=== PATIENT | female | born 1970 | race African-American/Black ===

== ENCOUNTER 2024-05-15 14:31 | Outpatient (AMB) | payer OTHER, SELFPAY ==
--- NOTE | 2024-05-15 13:06 | MHC.OFFVIS ---
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 Required: No Mathematician: Mathematician offered & declined Accompanied by: Self / Same As Patient Allergies clonidine Allergy (Verified 05/15/24 14:52) fatigue and elevated BP Sulfa (Sulfonamide Antibiotics) Allergy (Verified 05/15/24 14:52) rash tramadol Allergy (Verified 05/15/24 14:52) Itching hydrochlorothiazide Adverse Reaction (Verified 05/15/24 14:52) dehydrated amoxicillin clavulanate Allergy (Uncoded 05/15/24 14:52) swelling of lips/mouth bactrim Allergy (Uncoded 05/15/24 14:52) Rash metoprolol Allergy (Uncoded 05/15/24 14:52) rash carvedilol Adverse Reaction (Uncoded 05/15/24 14:52) Elevated BP Medication List - Last Reconciled 05/15/24 by Brittany Michel LPN amlodipine 10 mg PO DAILY losartan 50 mg PO DAILY multivitamin 1 tab PO DAILY tirzepatide (weight loss) (Zepbound) 5 mg subcut QWEEK valacyclovir 500 mg PO BID HPI HPI edenilson: Details: Sade is a pleasant 53 year old female, never smoker, with underlying EDENILSON on CPAP, migraines, Bipolar disorder and TISH +. She was referred by PCP to manage CPAP therapy. She has been on CPAP therapy for >5 years, using the same CPAP machine, for reported moderate EDENILSON with a full face mask. DME is [facility]. Her machine has an end of life notification and is interested in pursing a new machine. Prior to initiating CPAP therapy she reported persistent brain fog and daytime fatigue, reporting significant improvements after use. She currently denies any respiratory symptoms. She does note increase frequency of palpitations over the last few months and has an upcoming appt with cardiology. She has a h/o HTN currently managed on amlodipine and losartan by PCP. [facility] Social History (Updated 05/15/24 @ 14:43 by Brittany Michel LPN) Patient Tobacco Use Status: Never used Tobacco Review of Systems Const Denies chills, Denies excessive sweating, Denies fever(s), Denies headache(s) and Denies night sweats Eyes Denies dry eyes, Denies irritation and Denies itchy eyes ENT Reports Normal hearing present, Denies headache(s), Denies nasal congestion, Denies nasal discharge, Denies post nasal drip and Denies sore throat Card Denies chest pain, Denies chest pain at rest, Denies chest pain with activity, Denies claudication, Denies leg edema, Denies dyspnea, Denies dyspnea on exertion, Denies orthopnea and Denies paroxysmal nocturnal dyspnea Resp Denies chest congestion, Denies cough, Denies excessive phlegm production, Denies pain on inspiration, Denies pain with cough, Denies dyspnea, Denies dyspnea on exertion, Denies stridor and Denies wheezing Musc Denies myalgias Neuro Reports Normal hearing present and Denies headache(s) Endo Denies excessive sweating Jules/Lymph Denies lymphadenopathy Aller/Immun Denies itchy eyes, Denies seasonal rhinorrhea and Denies wheezing Physical Exam Vital Signs: Last Vital Signs Pulse 98 05/15/24 14:35 BP 136/70 05/15/24 14:35 Pulse Ox 100 05/15/24 14:35 Oxygen Delivery Method Room Air 05/15/24 14:35 BMI result Body Mass Index 44.9 Const General: cooperative, healthy appearing, comfortable, no acute distress, well developed and alert Nutritional Appearance: obese Orientation/consciousness: patient oriented x3 Limitations: no limitations HEENT Head: Yes normal to inspection, Yes normocephalic and Yes atraumatic Ears: hearing grossly normal bilaterally and external ears normal Eyes General: appearance normal, both eyes and all related structures Eyelids: Yes eyelids normal Sclerae: sclerae normal EOM: EOMs intact bilaterally Neck Neck: Yes normal visual inspection and Yes no lymphadenopathy Lymphatic: no lymphadenopathy noted Chest Chest palpation & inspection: normal inspection of the chest Resp Effort & Inspection: normal respiratory effort, able to speak in complete sentences, no audible wheezes, no cough, no stridor, not tachypneic, no tripod positioning and no use of accessory muscles Auscultation: clear to auscultation bilaterally Cardio Jugular venous distension: no JVD Rate: regular rate Rhythm: regular rhythm Skin Other: warm, dry General skin exam: no rashes or lesions noted Neuro General: patient oriented x3 Cranial nerves: Yes Normal hearing present Cognition (Neuro): normal cognition Gait exam (Neuro): Normal gait present Extrem General: Yes normal to inspection, Yes capillary refill normal, Yes no clubbing, cyanosis or edema and Yes no pedal edema Psych Appearance: grossly normal and well kempt Speech and movement: Normal speech and movement present and Clear speech present Affect: normal affect Attitude: cooperative Thought process: Normal thought process present Thought content: Normal thought content present Insight: Good insight present (Psych) Judgement: Good judgement present (Psych) Assessment & Plan Assessment & Plan (1) Obstructive sleep apnea: Code(s): G47.33 - Obstructive sleep apnea (adult) (pediatric) Category: Medical (2) Daytime somnolence: Code(s): R40.0 - Somnolence Category: Medical Plan Sade presents for CPAP therapy management. She has a prior dx of EDENILSON, currently using a CPAP machine >5 years old displaying end of motor life notification. Will send for updated home sleep study and once resulted will send new prescription for CPAP therapy depending on results. All questions were answered and patient is in agreement of plan. Will follow up to review results or sooner if needed. Orders: Orders RT home sleep study Today R40.0 - Somnolence Coding Level of Care Code New Pt Level 3 (62420) Diagnoses Obstructive sleep apnea G47.33 Daytime somnolence R40.0
[2024-05-15 14:35] VITALS: BP 136/70; PULSE 98; O2SAT 100; BMI 44.9
--- OUTSIDE RECORDS SUMMARY | 2024-05-15 17:03 | XMS_ITS | Encounter Summary ---
Author Organization [facility] Address [address] [place] [address] Care Team Providers Care Renewals Specialist Name Role Phone Christen Bryanta Primary Care Provider [phone] Reason for Visit * Reason Comments Chest Pain CHEST PAIN WITH PALP ITATIONS Encounter Details Date Type Department Care Team (Late st Contact Info) Description 05/03/2024 8:07 AM EST - 05/03/2024 12:[address] [facility] [address] [place] [phone] Jac Parikh, DO [address] [place] [address] Precordial pain (Primary Dx); Palpitations Discharge Disposition: Home or Self Care Social History Tobacco Use Types Packs/Day Years Used Date Smoking Tobacco: Never Smokeless Tobacco: Never Alcohol Use Standard Drinks/Week Comments Yes 0 (1 standard drink = 0.6 oz pur e alcohol) Housing Instability Answer Date Recorde d Are you worried that in the next 2 months you may not have stable housing? No 04/16/2024 Food Access & Nutrition Answer Date Rec orded Do you have access to a vari ety of food including fruits and vegetables? Yes 04/16/2024 Health Literacy Answer Date Recorded How often do you need to hav e someone help you when you read instructions, pamphlets, or other written material from your doctor or pharmacy? Never 04/16/2024 Caregiver: How often do you need to have someone help you when you read instructions, pamphlets, or other written material from your doctor or pharmacy? Not on file 04/16/2024 Financial Risk Answer Date Recorded How hard is it for you to pa y for the very basics like food, housing, medical care, and air conditioning / heating? Somewhat hard 04/16/2024 Transportation Answer Date Recorded Has the lack of transportati on kept you from meetings, work, or from getting things needed for daily living? No Has the lack of transportati on kept you from medical appointments or from getting medications? No 04/16/2024 Social Isolation Answer Date Recorded How often do you feel lonely or isolated from th ose around you? Never 04/16/2024 Food Risk Answer Date Recorded Within the past 12 months we worried whether our food would run out before we got money to buy more. Never true 04/16/2024 Within the past 12 months th e food we bought just didn't last and we didn't have money to get more. Never true 04/16/2024 Dependent Care Answer Date Recorded Do you need help finding or paying for care for your loved ones. For example, children's program coordinator or elderly care for an older adult? No 04/16/2024 Education Answer Date Recorded Do you think completing more education or training, like finishing a GED, going to college, or learning a trade, would be helpful for you? Patient declined 04/16/2024 Employment and Income Answer Date Recor ded During the last four weeks, have you been actively looking for work? No 04/16/2024 Living Situation Answer Date Recorded What is your living situation? 0 04/16/2024 Comments No Sex and Gender Information Value Date Recorded Sex Assigned at Not on file Legal Sex Female 6:56 AM EST Gender Identity Not on file Sexual Orientation Not on file documented as of this encounter Last Filed Vital Signs Vital Sign Reading Time Taken Comments Blood Pressure 118/83 05/03/2024 11:25 AM EST Pulse 81 05/03/2024 11:25 AM EST Temperature 36.7 ??C (98.1 ??F) 05/03/2024 11:[address] Respiratory Rate 18 05/03/2024 11:25 AM EST Oxygen Saturation 99% 05/03/2024 11:25 AM EST Inhaled Oxygen Concentration - - Weight 132 kg (290 lb) 05/02/2024 11:41 PM EST Height 172.7 cm (5' 8 ) 05/02/2024 11:41 PM EST Body Mass Index 44.09 05/02/2024 11:41 PM EST documented in this encounter Discharge Instructions * Discharge Instructions* Jac Parikh DO - 05/03/2024 11:44 AM EST Stay well-hydrated, drink plenty of fluids. Take it easy for the next few days, do not overexert self. Apply warm moist compresses several times daily. Take Naprosyn and Robaxin as directed as needed.. Avoid heavy lifting and twisting. Take it easy for a few of days. Followup with your doctor in a few days. Return to the emergency department if you get worse. I hope you feel better soon. documented in this encounter Medications at Time of Discharge albuterol HFA (PROAIR HFA ; PROVENTIL HFA ; VENTOLIN HFA) 90 mcg/actuation inhaler Inhale 1 puff by mouth if needed. 02/25/2024 amLODIPine (NORVASC) 5 mg tabletIndications: Primary hypertension Take 1 tablet (5 mg total) by mouth 1 (one) time each day. 90 tablet 1 04/18/2024 cholecalciferol (VITAMIN D-3) 50 mcg (2,000 unit) capsuleIndications :Vitamin D deficiency Take 1 capsule (2,000 Units total) by mouth 1 (one) time each day. 90 capsule 1 04/18/2024 dicyclomine (BENTYL) 10 mg capsule Take 1 Capsule by mouth 4 times daily (before meals and nightly) for 180 days. 08/15/2021 losartan (COZAAR) 50 mg tabletIndications: Primary hypertension Take 1 tablet (50 mg total) by mouth 1 (one) time each day. 90 tablet 1 04/18/2024 multivitamin with minerals (CENTRUM) tablet Take 1 tablet by mouth 1 (one) time each day. naproxen (NAPROSYN) 500 mg tablet Take 1 tablet (500 mg total) by mouth 2 (two) times a day with meals for 15 days. 30 tablet 05/03/2024 5 tirzepatide, weight loss, (Zepbound) 5 mg/0.5 mL injection Inject 0.5 mL (5 mg total) under the skin every 7 (seven) days. 2 mL 04/27/2024 valACYclovir (VALTREX) 500 mg tabletIndications: Herpes Take 1 tablet (500 mg total) by mouth 2 (two) times a day. 180 tablet 1 04/18/2024 methocarbamoL (ROBAXIN) 750 mg tablet Take 1 tablet (750 mg total) by mouth 4 (four) times a day for 10 days. 40 each 05/03/2024 5 WHEAT DEXTRIN ORAL Take 4 g by mouth daily. 12/09/2023 5 documented as of this encounter Ordered Prescriptions Prescription Sig Dispense Quantity Refills Last Filled Start Date End Date naproxen (NAPROSYN) 500 mg tablet Take 1 tablet (500 mg total) by mouth 2 (two) times a day with meals for 15 days. 30 tablet 05/03/2024 05/18/2024 methocarbamoL (ROBAXIN) 750 mg tablet Take 1 tablet (750 mg total) by mouth 4 (four) times a day for 10 days. 40 each 05/03/2024 05/05/2024 documented in this encounter Discharge Disposition Disposition Code Departure Means Destination Comment s Home or Self Care documented in this encounter Progress Notes * Kathryn Lynne RN - 05/02/2024 11:39 PM EST Pt to ER with complaints of palpitations x 1 week. Today onset of left sided chest pain that is radiating up to neck. C/O nausea and lightheadedness. * Jac Parikh DO - 05/02/2024 11:24 PM EST Emergency Medicine Note Patient Name: Sade Farmer Initial Evaluation: 05/02/2024 : 1970 Patient's PCP: Alice Bryant DO Emergency Physician: Jac Parikh DO History of Present Illness Chief Complaint: Chief Complaint Patient presents with Chest Pain CHEST PAIN WITH PALPITATIONS HPI: This 53-year-old female with history of multiple medical problems, presents emergency department complaining of palpitations, left-sided and sternal area chest pain, headache, neck pain. The chest pain has been going on persistently for the past 2 days but no shortness of breath. Her other symptoms have been going on for several days. No back pain. No focal numbness or weakness. No visual complaints or difficulty speaking. No abdominal pain, vomiting or diarrhea. Patient has had some nausea and lightheadedness with her other symptoms. She denies any known history of CAD or thromboembolicdisease. No history of TIA/CVA. She is not on any blood thinners. Patient reports she does have a history of migraine headaches. Fevers, chills or sweats. No trauma or injury. No other acute complaints. ROS: I have performed a ROS with the pertinent positives and negatives documented in the history ofpresent illness. 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 History of colonic polyps 07/16/2017 DX:History of colonic polyps; COMMENT: Colonoscopy 02/04/15. Sessile. Distal sigmoid - 8 mm, transverse colon - 5 mm and rectum - 5 mm. Hx of sinus tachycardia 04/01/2020 DX:Hx of sinus tachycardia Hydronephrosis of left kidney 07/16/2017 DX:Hydronephrosis of left kidney; COMMENT: US 06/20/12 - mild Hypertension 08/17/2016 DX:Hypertension IBS (irritable bowel syndrome) 07/16/2017 DX:IBS (irritable bowel syndrome) Knee pain 08/17/2016 DX:Knee pain Microhematuria DX:Microhematuria Migraine 07/16/2017 DX:Migraine Morbid obesity with BMI of 40.0-44.9, adult (CMS/HCC) 08/17/2016 DX:Morbid obesity with BMI of 40.0-44.9, adult (HCC) Multiple fibroadenomata of both breasts 07/16/2017 DX:Multiple fibroadenomata of both breasts; COMMENT: 12/28/08 breast lump. Bilateral Mammo & US01/08/09 Nonulcer dyspepsia 08/12/2017 DX:Nonulcer dyspepsia EDENILSON on CPAP 08/17/2016 DX:EDENILSON on CPAP Palpitations 04/01/2020 DX:Palpitations Vitamin D deficiency 08/20/2016 DX:Vitamin D deficiency Past Surgical History: Procedure Laterality Date APPENDECTOMY 11/15/2016 PROCEDURE: HISTORICAL APPENDECTOMY COLONOSCOPY 02/04/2015 PROCEDURE: HISTORICAL COLONOSCOPY; COMMENT: with EGD COLONOSCOPY 02/12/2020 PROCEDURE: HISTORICAL COLONOSCOPY; COMMENT: Dr. Massey, int hemorrhoids HERNIA REPAIR 11/15/2016 PROCEDURE: HISTORICAL HERNIA REPAIR/UMB HYSTERECTOMY 2012 PROCEDURE: HISTORICAL HYSTERECTOMY; COMMENT: with L oophorectomy KNEE ARTHROPLASTY Left 10/2020 PROCEDURE: OH ARTHRS KNEE ABRASION ARTHRP/ASSISTANT CASE MANAGER DRLG/MICROFX; COMMENT: By Dr. Keyshawn Taylor - Total Knee Arthroplasty KNEE SURGERY Bilateral 11/2015 and 04/2016 PROCEDURE: HISTORICAL KNEE SURGERY; COMMENT: meniscal repair and osteophyte removal; NEOS SALPINGOOPHORECTOMY Left 11/15/2016 PROCEDURE: OH LAPAROSCOPY W/RMVL ADNEXAL STRUCTURES; COMMENT: ruptured ovarian cyst Social History Tobacco Use Smoking status: Never Smokeless tobacco: Never Substance Use Topics Alcohol use: Yes Drug use: No Types: Marijuana/Cannabis Family History Problem Relation Name Age of Onset Asthma Mother end stage COPD,HTN- age 57 Hypertension Mother Hypertension Maternal Grandmother Arthritis is allergic to amoxicillin-pot clavulanate, carvedilol, clonidine, hydrochlorothiazide, metoprolol,sulfa (sulfonamide antibiotics), sulfamethoxazole-trimethoprim, and tramadol. No current facility-administered medications on file prior to encounter. Current Outpatient Medications on File Prior to Encounter Medication Sig Dispense Refill amLODIPine (NORVASC) 5 mg tablet Take 1 tablet (5 mg total) by mouth 1 (one) time each day. 90 tablet 1 cholecalciferol (VITAMIN D-3) 50 mcg (2,000 unit) capsule Take 1 capsule (2,000 Units total) by mouth 1 (one) time each day. 90 capsule 1 dicyclomine (BENTYL) 10 mg capsule Take 1 Capsule by mouth 4 times daily (before meals and nightly)for 180 days. losartan (COZAAR) 50 mg tablet Take 1 tablet (50 mg total) by mouth 1 (one) time each day. 90 tablet 1 multivitamin with minerals (CENTRUM) tablet Take 1 tablet by mouth 1 (one) time each day. tirzepatide, weight loss, (Zepbound) 5 mg/0.5 mL injection Inject 0.5 mL (5 mg total) under the skin every 7 (seven) days. 2 mL 0 valACYclovir (VALTREX) 500 mg tablet Take 1 tablet (500 mg total) by mouth 2 (two) times a day. 180tablet 1 WHEAT DEXTRIN ORAL Take 4 g by mouth daily. [DISCONTINUED] Zepbound 2.5 mg/0.5 mL injection ADMINISTER 2.5 MG UNDER THE SKIN EVERY 7 DAYS 2 mL 0 Physical Exam ED Triage Vitals Temp Heart Rate Resp BP 05/02/24 2341 05/02/24 2341 05/02/24 2341 05/02/24 2341 36.8 ??C (98.2 ??F) 95 18 (!) 180/105 SpO2 Temp Source Heart Rate Source Patient Position 05/02/24 2341 05/02/24 2341 -- -- 100 % Oral BP Location FiO2 (%) 05/03/24 0553 -- Left arm General: Alert and oriented x 3, nontoxic, in no acute distress. Well-appearing, well nourished, inno acute distress. Conversing and following commands appropriately with clear sensorium. HEENT: PERRL, EOMI, pink and moist mucosa neck: Soft and supple, positive reproducible left trapezius area spasm and tenderness. No meningismus. Chest: Good air entry bilaterally clear to auscultation; no evidence of respiratory distress Circulatory: RRR, extremities well perfused Abdomen: Soft, non-distended, Non-Tender Extremities: Warm and well-perfused Skin: Warm and dry Neuro: Alert and oriented x 3, no obvious gross acute focal deficits Results Labs Reviewed CBC WITH AUTO DIFFERENTIAL - Abnormal Result Value WBC 9.7 RBC 5.50 (*) Hemoglobin 13.2 Hematocrit 43.0 MCV 78.2 (*) MCH 24.0 (*) MCHC 30.7 (*) RDW 15.1 (*) Platelets 394 MPV 9.2 NRBC 0.0 NRBC Absolute 0.00 Neutrophils Relative 56.5 Lymphocytes Relative 35.2 Monocytes Relative 6.3 Eosinophils Relative 1.3 Basophils Relative 0.4 Immature Granulocytes Relative 0.3 Neutrophils Absolute 5.45 Lymphocytes Absolute 3.40 Monocytes Absolute 0.61 Eosinophils Absolute 0.13 Basophils Absolute 0.04 Immature Granulocytes Absolute 0.03 THYROID STIMULATING HORMONE WITH REFLEX TO FREE T4 AND FREE T3 - Abnormal TSH 4.32 (*) TROPONIN I HIGH SENSITIVITY - Normal High Sensitivity Troponin I 3 Narrative: High levels of biotin in samples may falsely decrease hsTroponin values. Use caution when interpreting hsTroponin results in patients taking biotin who exhibit renal impairment (eGFR <60) or in patients taking more than 20 mg/day of biotin. TROPONIN I HIGH SENSITIVITY - Normal High Sensitivity Troponin I 3 Narrative: High levels of biotin in samples may falsely decrease hsTroponin values. Use caution when interpreting hsTroponin results in patients taking biotin who exhibit renal impairment (eGFR <60) or in patients taking more than 20 mg/day of biotin. COMPREHENSIVE METABOLIC PANEL - Normal Sodium 140 Potassium 4.3 Chloride 105 CO2 29 Anion Gap 6 Glucose 87 BUN 12 Creatinine 0.87 eGFR 81 BUN/Creatinine Ratio 13.8 Calcium 10.3 AST (SGOT) 20 ALT (SGPT) 20 Alkaline Phosphatase 81 Total Protein 7.8 Albumin 3.9 Total Bilirubin 0.3 LIPASE - Normal Lipase 27 MAGNESIUM - Normal Magnesium 2.0 B-TYPE NATRIURETIC PEPTIDE - Normal BNP 10 FREE THYROXINE WITH REFLEX TO FREE TRIIODOTHYRONINE - Normal Free T4 1.32 TRIIODOTHYRONINE FREE - Normal T3, Free 406 CBC AND DIFFERENTIAL Narrative: The following orders were created for panel order CBC and differential. Procedure Abnormality Status --------- ------ CBC auto differential[[id number]] Abnormal Final result Please view results for these tests on the individual orders. Abnormal Labs Reviewed CBC WITH AUTO DIFFERENTIAL - Abnormal; Notable for the following components: Result Value RBC 5.50 (*) MCV 78.2 (*) MCH 24.0 (*) MCHC 30.7 (*) RDW 15.1 (*) All other components within normal limits THYROID STIMULATING HORMONE WITH REFLEX TO FREE T4 AND FREE T3 - Abnormal; Notable for the following components: TSH 4.32 (*) All other components within normal limits CT Angio Chest wo and/or w Contrast Final Result No pulmonary arterial emboli. Small hiatal hernia with patulous esophagus. Correlate for reflux gastroesophageal reflux. -------- FINAL REPORT -------- Dictated By: DUSTY HI Dictated Date: 05/03/2024 09:33 ET Assigned Physician: DUSTY HI Reviewed and Electronically Signed By: DUSTY HI Signed Date: 05/03/2024 09:37 ET Workstation ID: [id number] Transcribed By: Self Edit Transcribed Date: 05/03/2024 09:[address] Angio Head/Neck wo and/or w Contrast Final Result Normal exam -------- FINAL REPORT -------- Dictated By: DUSTY HI Dictated Date: 05/03/2024 09:38 ET Assigned Physician: DUSTY HI Reviewed and Electronically Signed By: DUSTY HI Signed Date: 05/03/2024 09:43 ET Workstation ID: [id number] Transcribed By: Self Edit Transcribed Date: 05/03/2024 09:38 ET XR Chest 2 Views Final Result No acute findings. -------- FINAL REPORT -------- Dictated By: Nixon Naidu Dictated Date: 05/03/2024 08:24 ET Assigned Physician: Nixon Naidu Reviewed and Electronically Signed By: Nixon Naidu Signed Date: 05/03/2024 08:25 ET Workstation ID: [id number] Transcribed By: Self Edit Transcribed Date: 05/03/2024 08:24 ET I have discussed the incidental/abnormal imaging and/or lab abnormalities with the patient and haveinstructed them the need for further evaluation and workup with their primary care doctor. The laboratory results, imaging results and other diagnostic exam results were reviewed in the EMR. EKG Interpretation Sinus rhythm at 96 bpm compared to EKG done 03/05/2024 Critical Care Time None ? Medical Decision Making Medications sodium chloride 0.9 % bolus 1,000 mL (0 mL intravenous Stopped 05/03/24 0848) metoclopramide (REGLAN) injection 10 mg (10 mg intravenous Given 05/03/24 0842) diphenhydrAMINE (BENADRYL) injection 25 mg (25 mg intravenous Given 05/03/24 0841) sodium chloride 0.9 % flush 10 mL (10 mL intravenous Given 05/03/24 0901) iopamidoL (ISOVUE-370) 370 mg iodine /mL (76 %) injection 90 mL (160 mL intravenous Given 05/03/24 0900) ED Course as of 05/03/241144May 03, 2024 114 Reevaluation note: Patient is nontoxic, and in no acute distress and reports feeling better after treatment in the ED. Diagnostic studies reviewed. Given the patient's overall clinical presentation and her diagnostic results, there is low suspicion for any life-threatening or potentially seriously debilitating pathology causing the patient's symptoms. The patient states she feels well enoughto go home, and wants to go home. Of note, she appears very reliable, will follow-up with her doctor and return to the ED if she gets worse in any way at all. [KN] ED Course User Index [KN] Jac Parikh DO Clinical Impressions as of 05/03/241144 Precordial pain Palpitations Differential diagnosis: ACS UT Pneumothorax Pneumonia Pulmonary embolus Aortic dissection ICH Carotid dissection Migraine headache Tension headache Stable and in no distress. She does have a history of hypertension. Given her overall symptoms, CTAs of the head and neck as well as the chest with IV contrast were ordered. Procedures Procedures Diagnosis 1. Precordial pain CT Angio Chest wo and/or w Contrast CT Angio Chest wo and/or w Contrast 2. Palpitations Disposition Discharge ED Prescriptions Medication Sig Dispense Start Date End Date Auth. Provider naproxen (NAPROSYN) 500 mg tablet Take 1 tablet (500 mg total) by mouth 2 (two) times a day with meals for 15 days. 30 tablet 05/03/2024 05/18/2024 Jac Parikh DO methocarbamoL (ROBAXIN) 750 mg tablet Take 1 tablet (750 mg total) by mouth 4 (four) times a day for 10 days. 40 each 05/03/2024 05/13/2024 Jac Parikh DO Physician Attestation Jac Parikh DO 05/03/24 08 Jac Parikh DO 05/03/24 09 Jac Parikh DO 05/03/24 1145 Jac Parikh, 05/03/24 1617 documented in this encounter Plan of Treatment Upcoming Encounters Date Type Department Care Team (Late st Contact Info) Description 05/18/2024 8:45 AM EDT Office Visit Bariatric Surgery - [place] [address] [facility] [address] [place] [phone] Raiza Stewart MD [address] [facility] [address] [place] [address] 05/26/2024 10:00 AM EDT Ancillary Procedure [facility] [address] [facility] [address] [place] [phone] 05/29/2024 1:00 PM EDT Office Visit [facility] Hematology Oncology [address] [place] [phone] Cindy Levin DO [address] [place] [address] 06/15/2024 9:00 AM EDT Office Visit Internal Medicine - [facility] [address] [place] [phone] Brunilda Frederick, ALL[place] [address] [place] [address] 07/13/2024 8:15 AM EDT Telemedicine [facility] for [place] - [place] [address] [facility] [address] [place] [phone] Joan Moreland MD [address] [place] [id number] documented as of this encounter Procedures Procedure Name Priority Date/Time Associated Diagnosis Comments ECG ANNOTATED 05/04/2024 CT ANGIO HEAD/NECK WO AND/OR W CONTRAST STAT 05/03/2024 9:[address] ANGIO CHEST WO AND/OR W CONTRAST STAT 05/03/2024 9:20 AM EST Precordial pain XR CHEST 2 VIEWS STAT 05/03/2024 5:08 AM EST TROPONIN I HIGH SENSITIVITY STAT 05/03/2024 3:59 AM EST TROPONIN I HIGH SENSITIVITY STAT 05/03/2024 12:10 AM EST THYROID STIMULATING HORMONE WITH REFLEX TO FREE T4 AND FREE T3 STAT Add-on 05/03/2024 12:10 AM EST FREE THYROXINE WITH REFLEX TO FREE TRIIODOTHYRONINE STAT 05/03/2024 12:10 AM EST CBC WITH AUTO DIFFERENTIAL STAT 05/03/2024 12:10 AM EST CBC AND DIFFERENTIAL STAT 05/03/2024 12:10 AM EST TRIIODOTHYRONINE FREE STAT 05/03/2024 12:10 AM EST B-TYPE NATRIURETIC PEPTIDE STAT 05/03/2024 12:10 AM EST MAGNESIUM STAT 05/03/2024 12:10 AM EST LIPASE STAT 05/03/2024 12:10 AM EST COMPREHENSIVE METABOLIC PANEL STAT 05/03/2024 12:10 AM EST ECG 12-LEAD STAT 05/02/2024 11:32 PM EST documented in this encounter Results * ECG-Annotated (05/04/2024) us Provider Onbase MD ECG ORDERABLES Final Result * CT Angio Head/Neck wo and/or w Contrast (05/03/2024 9:20 AM EST) Anatomical Region Laterality Modality Head and Neck Computed Tomogra phy 05/03/2024 9:38 AM EST Impressions 05/03/2024 9:43 AM EST Normal exam -------- FINAL REPORT -------- Dictated By: DUSTY HI Dictated Date: 05/03/2024 09:38 ET Assigned Physician: DUSTY HI Reviewed and Electronically Signed By: DUSTY HI Signed Date: 05/03/2024 09:43 ET Workstation ID: [id number] Transcribed By: Self Edit Transcribed Date: 05/03/2024 09:38 ET Narrative 05/03/2024 9:43 AM EST PROCEDURE: Head CT and head/neck CTA INDICATION: Headache, pain TECHNIQUE: Head CT without contrast. ??CTA of the head and neck with intravenous contrast. Multiplanar reformats. The examination was performed utilizing dose reduction techniques.3-D or MIP images were produced with postprocessing on an independent computer workstation. ??160 mL ISOVUE-370 injected intravenously without complication COMPARISON: ??10/11/[address] FINDINGS: ?? CT head: No acute intracranial hemorrhage, territorial infarction, or mass effect. Valdez-white differentiation is preserved. ??Brain parenchyma is normal. Ventricles, sulci, and cisterns are normal in size and configuration. ??No hydrocephalus or volume loss. Prominent dural calcifications are seen throughout the intracranial compartment. Sinuses and mastoid air cells are clear. No scalp hematoma or skull fracture. CTA Neck: There is a left-sided aortic arch. Major branching arteries arising from the aortic arch are patent. Common carotid and internal carotid arteries are patent in the neck. Cervical vertebral arteries are patent. ??Left vertebral artery is dominant. ??Right vertebral artery is hypoplastic. No dissection Please see separately dictated chest CT for evaluation of intrathoracic structures. Soft tissues of the neck are normal. ??Mild degenerative changes throughout the cervical spine. CTA Head: Intracranial portions of the internal carotid arteries are patent. M1 and A1 segments are patent. ??Distal middle cerebral and anterior cerebral arteries are patent. Small vertebrobasilar system is patent. Superior cerebellar and posterior cerebral arteries are patent noting type origin of the posterior cerebral arteries bilaterally, a normal variant. Major dural venous sinuses opacify normally with contrast. No intracranial aneurysm or vascular malformation. Procedure Note Dusty Hi MD - 05/03/2024 PROCEDURE: Head CT and head/neck CTA INDICATION: Headache, pain TECHNIQUE: Head CT without contrast. CTA of the head and neck withintravenous contrast. Multiplanar reformats. The examination was performedutilizing dose reduction techniques.3-D or MIP images were produced withpostprocessing on an independent computer workstation. 160 mL ISOVUE-370injected intravenously without complication COMPARISON: 10/11/[address] FINDINGS: CT head: No acute intracranial hemorrhage, territorial infarction, or masseffect. Valdez-white differentiation is preserved. Brain parenchyma is normal. Ventricles, sulci, and cisterns are normal in size and configuration. Nohydrocephalus or volume loss. Prominent dural calcifications are seen throughout the intracranialcompartment. Sinuses and mastoid air cells are clear. No scalp hematoma or skull fracture. CTA Neck: There is a left-sided aortic arch. Major branching arteries arising from the aortic arch are patent. Commoncarotid and internal carotid arteries are patent in the neck. Cervicalvertebral arteries are patent. Left vertebral artery is dominant. Rightvertebral artery is hypoplastic. No dissection Please see separately dictated chest CT for evaluation of intrathoracicstructures. Soft tissues of the neck are normal. Mild degenerativechanges throughout the cervical spine. CTA Head: Intracranial portions of the internal carotid arteries are patent. M1 andA1 segments are patent. Distal middle cerebral and anterior cerebralarteries are patent. Small vertebrobasilar system is patent. Superior cerebellar and posteriorcerebral arteries are patent noting type origin of the posteriorcerebral arteries bilaterally, a normal variant. Major dural venous sinuses opacify normally with contrast. No intracranial aneurysm or vascular malformation. IMPRESSION: Normal exam -------- FINAL REPORT -------- Dictated By: DUSTY HI Dictated Date: 05/03/2024 09:38 ET Assigned Physician: DUSTY HI Reviewed and Electronically Signed By: DUSTY HI Signed Date: 05/03/2024 09:43 ET Workstation ID: [id number] Transcribed By: Self Edit Transcribed Date: 05/03/2024 09:38 ET Jac Parikh DO IMG CT PROCEDURES Final Result * CT Angio Chest wo and/or w Contrast (05/03/2024 9:20 AM EST) Anatomical Region Laterality Modality Body Computed Tomogra phy 05/03/2024 9:33 AM EST Impressions 05/03/2024 9:37 AM EST No pulmonary arterial emboli. Small hiatal hernia with patulous esophagus. ??Correlate for reflux gastroesophageal reflux. -------- FINAL REPORT -------- Dictated By: DUSTY HI Dictated Date: 05/03/2024 09:33 ET Assigned Physician: DUSTY HI Reviewed and Electronically Signed By: DUSTY HI Signed Date: 05/03/2024 09:37 ET Workstation ID: [id number] Transcribed By: Self Edit Transcribed Date: 05/03/2024 09:33 ET Narrative 05/03/2024 9:37 AM EST PROCEDURE: Chest CTA INDICATION: Chest pain TECHNIQUE: Chest CTA with intravenous administration of 160cc ISOVUE-370. Multi planar reformats were created and interpreted. The examination was performed utilizing dose reduction techniques.3-D or MIP images were produced with postprocessing on an independent computer workstation. ??Total DLP 756 COMPARISON: ??01/07/[address] FINDINGS: LUNGS/PLEURA: Central airways are patent. Lungs are clear. No pleural effusion or pneumothorax. MEDIASTINUM: Motion artifact obscures the subsegmental left lower lobe pulmonary arteries. ??No pulmonary arterial emboli. ??Thoracic aorta is normal in size. ??Cardiac chambers are normal in size. ??No pericardial effusion. ??No coronary artery calcifications. ??Small hiatal hernia with patulous esophagus. ??Thyroid gland is unremarkable. CHEST WALL: No axillary lymphadenopathy or superficial hematoma. UPPER ABDOMEN:The visualized portions of the upper abdomen are unremarkable. BONES: No acute fracture. Scattered degenerative changes seen throughout the bones. Procedure Note Dutsy Hi MD - 05/03/2024 PROCEDURE: Chest CTA INDICATION: Chest pain TECHNIQUE: Chest CTA with intravenous administration of 160cc ISOVUE-370.Multi planar reformats were created and interpreted. The examination wasperformed utilizing dose reduction techniques.3-D or MIP images wereproduced with postprocessing on an independent computer workstation.Total DLP 756 COMPARISON: 01/07/[address] FINDINGS: LUNGS/PLEURA: Central airways are patent. Lungs are clear. No pleuraleffusion or pneumothorax. MEDIASTINUM: Motion artifact obscures the subsegmental left lower lobepulmonary arteries. No pulmonary arterial emboli. Thoracic aorta isnormal in size. Cardiac chambers are normal in size. No pericardialeffusion. No coronary artery calcifications. Small hiatal hernia withpatulous esophagus. Thyroid gland is unremarkable. CHEST WALL: No axillary lymphadenopathy or superficial hematoma. UPPER ABDOMEN:The visualized portions of the upper abdomen areunremarkable. BONES: No acute fracture. Scattered degenerative changes seen throughoutthe bones. IMPRESSION: No pulmonary arterial emboli. Small hiatal hernia with patulous esophagus. Correlate for refluxgastroesophageal reflux. -------- FINAL REPORT -------- Dictated By: DUSTY HI Dictated Date: 05/03/2024 09:33 ET Assigned Physician: DUSTY HI Reviewed and Electronically Signed By: DUSTY HI Signed Date: 05/03/2024 09:37 ET Workstation ID: [id number] Transcribed By: Self Edit Transcribed Date: 05/03/2024 09:33 ET Jac Parikh DO IMG CT PROCEDURES Final Result * XR Chest 2 Views (05/03/2024 5:08 AM EST) Anatomical Region Laterality Modality Body Radiographic Kassy ging 05/03/2024 8:24 AM EST Impressions 05/03/2024 8:25 AM EST No acute findings. -------- FINAL REPORT -------- Dictated By: Nixon Naidu Dictated Date: 05/03/2024 08:24 ET Assigned Physician: Nixon Naidu Reviewed and Electronically Signed By: Nixon Naidu Signed Date: 05/03/2024 08:25 ET Workstation ID: [id number] Transcribed By: Self Edit Transcribed Date: 05/03/2024 08:24 ET Narrative 05/03/2024 8:25 AM EST PROCEDURE: PA and lateral radiographs of the chest. HISTORY: chest pain. COMPARISON: 03/05/2024. FINDINGS: Lungs, pleural spaces, pulmonary vasculature, and cardiomediastinal contours are normal. ??Mild degenerative changes of the spine. Procedure Note Nixon Naidu MD - 05/03/2024 PROCEDURE: PA and lateral radiographs of the chest. HISTORY: chest pain. COMPARISON: 03/05/2024. FINDINGS: Lungs, pleural spaces, pulmonary vasculature, and cardiomediastinalcontours are normal. Mild degenerative changes of the spine. IMPRESSION: No acute findings. -------- FINAL REPORT -------- Dictated By: Nixon Naidu Dictated Date: 05/03/2024 08:24 ET Assigned Physician: Nixon Naidu Reviewed and Electronically Signed By: Nixon Naidu Signed Date: 05/03/2024 08:25 ET Workstation ID: [id number] Transcribed By: Self Edit Transcribed Date: 05/03/2024 08:24 ET Jac Parikh DO IMG XR PROCEDURES Final Result * Troponin I high sensitivity (05/03/2024 3:59 AM EST) High Sensitivity Troponin I 3 <=54 ng/L LAB CHEMISTRY METHOD 05/03/2024 4:40 AM EST [facility] Blood Venous blood specimen / Unknown Venipuncture / Unknown 05/03/2024 3:59 AM EST 05/03/2024 4:07 AM EST Narrative [facility] - 05/03/2024 4:40 AM EST High levels of biotin in samples may falsely decrease hsTroponin values. ??Use caution when interpreting hsTroponin results in patients taking biotin who exhibit renal impairment (eGFR <60) or in patients taking more than 20 mg/day of biotin. us Jac Parikh DO LAB BLOOD ORDERABLES Final Res ult Performing Organization Address City/[facility]/ZIP Co de Phone Number [facility] [address] [place] [address], [place] [phone] * Triiodothyronine free (05/03/2024 12:10 AM EST) T3, Free 406 230 - 420 pcg/dL LAB CHEMISTRY METHOD 05/03/2024 10:06 AM EST [facility] Blood Venous blood specimen / Unknown Venipuncture / Unknown 05/03/2024 12:10 AM EST 05/03/2024 12:48 AM EST us Jac Parikh DO LAB BLOOD ORDERABLES Final Res ult Performing Organization Address [facility]/[place] Co de Phone Number [facility] [address] [place] [address], [place] [phone] * Free thyroxine with reflex to free triiodothyronine (05/03/2024 12:10 AM EST) Free T4 1.32 0.70 - 1.80 ng/dL LAB CHEMISTRY METHOD 05/03/2024 9:39 AM EST [facility] Blood Venous blood specimen / Unknown Venipuncture / Unknown 05/03/2024 12:10 AM EST 05/03/2024 12:48 AM EST us Jac Parikh DO LAB BLOOD ORDERABLES Final Res ult Performing Organization Address [facility]/ZIP Co de Phone Number [facility] [address] [place] [address], [place] [phone] * (ABNORMAL) Thyroid stimulating hormone with reflex to free t4 and free t3 (TSH Reflex) (05/03/2024 12:10 AM EST) TSH 4.32(H) 0.40 - 4.00 mcIU/mL LAB CHEMISTRY METHOD 05/03/2024 9:14 AM EST [facility] Blood Venous blood specimen / Unknown Venipuncture / Unknown 05/03/2024 12:10 AM EST 05/03/2024 12:48 AM EST us Jac Parikh DO LAB BLOOD ORDERABLES Final Res ult [facility] [address] [place] [address], * (ABNORMAL) CBC auto differential (05/03/2024 12:10 AM EST) WBC 9.7 4.8 - 10.8 K/mcL LAB HEMETOLOGY METHOD 05/03/2024 12:53 AM [facility] RBC 5.50(H) 3.80 - 4.80 M/mcL LAB HEMETOLOGY METHOD 05/03/2024 12:53 AM [facility] Hemoglobin 13.2 11.5 - 16.0 g/dL LAB HEMETOLOGY METHOD 05/03/2024 12:53 AM [facility] Hematocrit 43.0 35.0 - 47.0 % LAB HEMETOLOGY METHOD 05/03/2024 12:53 AM [facility] MCV 78.2(L) 79.0 - 98.0 FL LAB HEMETOLOGY METHOD 05/03/2024 12:53 AM [facility] MCH 24.0(L) 27.0 - 32.0 pcg LAB HEMETOLOGY METHOD 05/03/2024 12:53 AM [facility] MCHC 30.7(L) 32.0 - 37.0 g/dL LAB HEMETOLOGY METHOD 05/03/2024 12:53 AM [facility] RDW 15.1(H) 11.0 - 15.0 % LAB HEMETOLOGY METHOD 05/03/2024 12:53 AM [facility] Platelets 394 130 - 400 K/mcL LAB HEMETOLOGY METHOD 05/03/2024 12:53 AM [facility] MPV 9.2 7.0 - 11.0 FL LAB HEMETOLOGY METHOD 05/03/2024 12:53 AM [facility] NRBC 0.0 <1.0 % LAB HEMETOLOGY METHOD 05/03/2024 12:53 AM [facility] NRBC Absolute 0.00 <0.10 K/mcL LAB HEMETOLOGY METHOD 05/03/2024 12:53 AM [facility] Neutrophils Relative 56.5 % LAB HEMETOLOGY METHOD 05/03/2024 12:53 AM [facility] Lymphocytes Relative 35.2 % LAB HEMETOLOGY METHOD 05/03/2024 12:53 AM [facility] Monocytes Relative 6.3 % LAB HEMETOLOGY METHOD 05/03/2024 12:53 AM [facility] Eosinophils Relative 1.3 % LAB HEMETOLOGY METHOD 05/03/2024 12:53 AM [facility] Basophils Relative 0.4 % LAB HEMETOLOGY METHOD 05/03/2024 12:53 AM [facility] Immature Granulocytes Relative 0.3 % LAB HEMETOLOGY METHOD 05/03/2024 12:53 AM [facility] Neutrophils Absolute 5.45 1.50 - 7.00 K/mcL LAB HEMETOLOGY METHOD 05/03/2024 12:53 AM [facility] Lymphocytes Absolute 3.40 1.00 - 5.00 K/mcL LAB HEMETOLOGY METHOD 05/03/2024 12:53 AM [facility] Monocytes Absolute 0.61 0.20 - 1.00 K/mcL LAB HEMETOLOGY METHOD 05/03/2024 12:53 AM [facility] Eosinophils Absolute 0.13 0.00 - 0.50 K/mcL LAB HEMETOLOGY METHOD 05/03/2024 12:53 AM EST [facility] Basophils Absolute 0.04 0.00 - 0.20 K/[facility] LAB HEMETOLOGY METHOD 05/03/2024 12:53 AM EST [facility] Immature Granulocytes Absolute 0.03 0.00 - 0.03 K/[facility] LAB HEMETOLOGY METHOD 05/03/2024 12:53 AM EST [facility] Blood Venous blood specimen / Unknown Venipuncture / Unknown 05/03/2024 12:10 AM EST 05/03/2024 12:48 AM EST us Jac Parikh DO LAB BLOOD ORDERABLES Final Res ult Performing Organization Address [facility]/ZIP Co de Phone Number [facility] [address] [place] [address], * B-type natriuretic peptide (05/03/2024 12:10 AM EST) BNP 10 <=100 pcg/mL LAB CHEMISTRY METHOD 05/03/2024 1:32 AM EST [facility] Blood Venous blood specimen / Unknown Venipuncture / Unknown 05/03/2024 12:10 AM EST 05/03/2024 12:48 AM EST us Jac Parikh DO LAB BLOOD ORDERABLES Final Res ult [facility] [address] [place] [address], [place] [phone] * Magnesium (05/03/2024 12:10 AM EST) Magnesium 2.0 1.9 - 2.6 mg/dL LAB CHEMISTRY METHOD 05/03/2024 1:25 AM EST [facility] Blood Venous blood specimen / Unknown Venipuncture / Unknown 05/03/2024 12:10 AM EST 05/03/2024 12:48 AM EST us Jac Parikh DO LAB BLOOD ORDERABLES Final Res ult Performing Organization Address [facility]/ZIP Co de Phone Number [facility] [address] [place] [address], [place] [phone] * Lipase (05/03/2024 12:10 AM EST) Pathologist [facility] Lipase 27 13 - 75 unit/L LAB CHEMISTRY METHOD 05/03/2024 1:25 AM [facility] Blood Venous blood specimen / Unknown Venipuncture / Unknown 05/03/2024 12:10 AM EST 05/03/2024 12:48 AM EST us Jac Parikh DO LAB BLOOD ORDERABLES Final Res ult Performing Organization Address [facility]/ZIP Co de Phone Number [facility] [address] [place] [address], [place] [phone] * Comprehensive metabolic panel (05/03/2024 12:10 AM EST) Pathologist [facility] Sodium 140 133 - 145 mmol/L LAB CHEMISTRY METHOD 05/03/2024 1:25 AM [facility] Potassium 4.3 3.5 - 5.5 mmol/L LAB CHEMISTRY METHOD 05/03/2024 1:25 AM [facility] Chloride 105 96 - 110 mmol/L LAB CHEMISTRY METHOD 05/03/2024 1:25 AM [facility] CO2 29 21 - 32 mmol/L LAB CHEMISTRY METHOD 05/03/2024 1:25 AM [facility] Anion Gap 6 3 - 11 LAB CHEMISTRY METHOD 05/03/2024 1:25 AM [facility] Glucose 87 70 - 100 mg/dL LAB CHEMISTRY METHOD 05/03/2024 1:25 AM [facility] BUN 12 5 - 25 mg/dL LAB CHEMISTRY METHOD 05/03/2024 1:25 AM [facility] Creatinine 0.87 0.50 - 1.10 mg/dL LAB CHEMISTRY METHOD 05/03/2024 1:25 AM [facility] eGFR 81 >=60 mL/min/1. 73m2 LAB CHEMISTRY METHOD 05/03/2024 1:25 AM [facility] Comment:Calculation based on the??Chronic Kidney Disease Epidemiology Collaboration (CKD-EPI) equation refit??without adjustment for race. BUN/Creatinine Ratio 13.8 LAB CHEMISTRY METHOD 05/03/2024 1:25 AM [facility] Calcium 10.3 8.5 - 10.5 mg/dL LAB CHEMISTRY METHOD 05/03/2024 1:25 AM [facility] AST (SGOT) 20 10 - 42 unit/L LAB CHEMISTRY METHOD 05/03/2024 1:25 AM [facility] ALT (SGPT) 20 10 - 60 unit/L LAB CHEMISTRY METHOD 05/03/2024 1:25 AM [facility] Alkaline Phosphatase 81 42 - 121 unit/L LAB CHEMISTRY METHOD 05/03/2024 1:25 AM [facility] Total Protein 7.8 6.0 - 8.0 g/dL LAB CHEMISTRY METHOD 05/03/2024 1:25 AM [facility] Albumin 3.9 3.2 - 5.0 g/dL LAB CHEMISTRY METHOD 05/03/2024 1:25 AM [facility] Total Bilirubin 0.3 0.0 - 1.4 mg/dL LAB CHEMISTRY METHOD 05/03/2024 1:25 AM [facility] Blood Venous blood specimen / Unknown Venipuncture / Unknown 05/03/2024 12:10 AM EST 05/03/2024 12:48 AM EST us Jac Parikh DO LAB BLOOD ORDERABLES Final Res ult Performing Organization Address [facility]/[place] Co de Phone Number [facility] [address] [place] [address], * Troponin I high sensitivity (05/03/2024 12:10 AM EST) [facility] High Sensitivity Troponin I 3 <=54 ng/L LAB CHEMISTRY METHOD 05/03/2024 1:24 AM EST [facility] Blood Venous blood specimen / Unknown Venipuncture / Unknown 05/03/2024 12:10 AM EST 05/03/2024 12:48 AM EST Narrative [facility] - 05/03/2024 1:24 AM EST High levels of biotin in samples may falsely decrease hsTroponin values. ??Use caution when interpreting hsTroponin results in patients taking biotin who exhibit renal impairment (eGFR <60) or in patients taking more than 20 mg/day of biotin. Jac Parikh DO LAB BLOOD ORDERABLES Final Res ult Performing Organization Address [facility]/[place] Co de Phone Number [facility] [address] [place] [address], * ECG 12 lead (05/02/2024 11:32 PM EST) [facility] Ventricular Rate ECG 96 BPM GEMUSE Atrial Rate 96 BPM GEMUSE P-R Interval 226 ms GEMUSE QRS Duration 84 ms GEMUSE Q-T Interval 370 ms GEMUSE QTc 467 ms GEMUSE P Wave [place] 8 degrees GEMUSE R [place] 90 degrees GEMUSE T [place] 18 degrees GEMUSE ECG Interpretation Sinus rhythm with 1st degree A-V block Rightward axis When compared with ECG of 05-MAR-2024 11:22, Questionabl e change in QRS axis Confirmed by RORY GUTIERREZ ([id number]) on 05/03/2024 7:45:19 AM GEMUSE 05/02/2024 11:3 2 PM EST 05/03/2024 7:45 AM EST us Jac Parikh DO ECG ORDERABLES Final Result EB documented in this encounter Visit Diagnoses Diagnosis Precordial pain- Primary Palpitations documented in this encounter Administered Medications Inactive Administered Medications - up to 3 most recent administrations Medication Order MAR Action Action Date Dose Rate Site diphenhydrAMINE (BENADRYL) injection 25 mg 25 mg, intravenous, Once, On Wed05/03/24 at 0826, For 1 dose Given 05/03/2024 8:41 AM EST 25 mg iopamidoL (ISOVUE-370) 370 mg iodine /mL (76 %) injection 90 mL 90 mL, intravenous, Once in imaging, Starting on Wed05/03/24 at 0900, For 1 dose Given 05/03/2024 9:00 AM EST 160 mL metoclopramide (REGLAN) injection 10 mg 10 mg, intravenous, Once, On Wed05/03/24 at 0826, For 1 dose, Doses LESS than or equal to 10 mg can be given IV push undiluted over 1 minute Given 05/03/2024 8:42 AM EST 10 mg sodium chloride 0.9 % bolus 1,000 mL 1,000 mL, intravenous, at 2,000 mL/hr, Administer over 30 Minutes, Once, On Wed05/03/24 at 0826, For 1 dose New Bag 05/03/2024 8:42 AM EST 1,000 mL 2000 mL/hr sodium chloride 0.9 % flush 10 mL 10 mL, intravenous, Once, On Wed05/03/24 at 0901, For 1 dose Given 05/03/2024 9:01 AM EST 10 mL documented in this encounter Active and Recently Administered Medications Times are shown in EST. Scheduled Medication Order 05/01/2024 05/02/2024 05/03/2024 diphenhydrAMINE (BENADRYL) injection 25 mg (COMPLETED) 25 mg, intravenous, Once, On Wed05/03/24 at 0826, For 1 dose 0841 (Given - Provid er: Daniela Paelncia RN) iopamidoL (ISOVUE-370) 370 mg iodine /mL (76 %) injection 90 mL (COMPLETED) 90 mL, intravenous, Once in imaging, Starting on Wed05/03/24 at 0900, For 1 dose 0900 (Given - Provid er: Carin Carty) metoclopramide (REGLAN) injection 10 mg (COMPLETED) 10 mg, intravenous, Once, On Wed05/03/24 at 0826, For 1 dose, Doses LESS than or equal to 10 mg can be given IV push undiluted over 1 minute 0842 (Given - Provid er: Daniela Palencia RN) sodium chloride 0.9 % bolus 1,000 mL (COMPLETED) 1,000 mL, intravenous, at 2,000 mL/hr, Administer over 30 Minutes, Once, On Wed05/03/24 at 0826, For 1 dose 0842 (New Bag - Prov ider: Daniela Palencia RN)0848 (Stopped - Provider: Daniela Palencia RN) sodium chloride 0.9 % flush 10 mL (COMPLETED) 10 mL, intravenous, Once, On Wed05/03/24 at 0901, For 1 dose 0901 (Given - Provid er: Agueda Schwartz) documented in this encounter Additional Health Concerns Assessment Noted Time PHQ-9 Depression Total Score: 0 04/16/19 25 2:32 PM EST documented as of this encounter Care Teams Renewals Specialist Relationship Specialty Start Date End Date Alice Bryant DO [address] [place], [place] [address] [address] PCP - General Internal Medicine 02/10/24 documented as of this encounter
--- OUTSIDE RECORDS SUMMARY | 2024-05-15 17:04 | XMS_ITS | Clinical Summary ---
Author Organization [facility] Address [address] [place] [address] Phone Care Team Providers Care Condemnation Engineer Name Role Phone Alice Bryant DO Primary Care Provider [phone] Allergies Active Allergy Reactions Criticality Noted Date Comments Amoxicillin-Pot Clavulanate 05/23/19 19 Lip swelling Carvedilol 08/28/2020 Increased BP Clonidine 01/31/2023 Fatigue, worsened blood pressure Hydrochlorothiazide 09/09/2016 Other Reaction(s): OTHER Dehydration, electrolyte Metoprolol 04/18/2020 Other Reaction(s): Rash/Dermatitis Sulfa (Sulfonamide Antibiotics) 04/18/2020 Other Reaction(s): Hives/Urticaria Sulfamethoxazole-Trimethoprim 2016 Other Reaction(s): Hives/Urticaria Tramadol Itching 08/17/2016 Medications dicyclomine (BENTYL) 10 mg capsule Take 1 Capsule by mouth 4 times daily (before meals and nightly) for 180 days. 08/16/19 22 Active multivitamin with minerals (CENTRUM) tablet Take 1 tablet by mouth 1 (one) time each day. Active amLODIPine (NORVASC) 5 mg tabletIndicatio ns:Primary hypertension Take 1 tablet (5 mg total) by mouth 1 (one) time each day. 90 tablet 1 04/18/19 25 Active valACYclovir (VALTREX) 500 mg tabletIndicatio ns:Herpes Take 1 tablet (500 mg total) by mouth 2 (two) times a day. 180 tablet 1 04/18/19 25 Active cholecalciferol (VITAMIN D-3) 50 mcg (2,000 unit) capsuleIndicati ons:Vitamin D deficiency Take 1 capsule (2,000 Units total) by mouth 1 (one) time each day. 90 capsule 1 04/18/19 25 Active losartan (COZAAR) 50 mg tabletIndicatio ns:Primary hypertension Take 1 tablet (50 mg total) by mouth 1 (one) time each day. 90 tablet 1 04/18/19 25 Active tirzepatide, weight loss, (Zepbound) 5 mg/0.5 mL injection Inject 0.5 mL (5 mg total) under the skin every 7 (seven) days. 2 mL 04/27/19 25 025 Active naproxen (NAPROSYN) 500 mg tablet Take 1 tablet (500 mg total) by mouth 2 (two) times a day with meals for 15 days. 30 tablet 05/04/19 25 025 Active albuterol HFA (PROAIR HFA ; PROVENTIL HFA ; VENTOLIN HFA) 90 mcg/actuation inhaler Inhale 1 puff by mouth if needed. 02/25/20 24 Active cetirizine (ZyrTEC) 10 mg tablet Take 1 tablet (10 mg total) by mouth 1 (one) time each day. Active amLODIPine (NORVASC) 5 mg tablet Take 1 tablet (5 mg total) by mouth 1 (one) time each day. 11/16/19 24 025 Discontinued(R eorder) losartan (COZAAR) 50 mg tablet Take 1 tablet (50 mg total) by mouth 1 (one) time each day. 09/13/19 24 025 Discontinued(R eorder) valACYclovir (VALTREX) 500 mg tablet 08/26/19 24 025 Discontinued(R eorder) cholecalciferol (VITAMIN D-3) 50 mcg (2,000 unit) capsule Take 1 Tablet by mouth daily. 06/01/19 24 025 Discontinued(R eorder) WHEAT DEXTRIN ORAL Take 4 g by mouth daily. 12/09/19 24 025 Discontinued(T herapy completed) Zepbound 2.5 mg/0.5 mL injection ADMINISTER 2.5 MG UNDER THE SKIN EVERY 7 DAYS 2 mL 03/31/19 25 025 Discontinued amLODIPine (NORVASC) 5 mg tabletIndicatio ns:Primary hypertension Take 1 tablet (5 mg total) by mouth 1 (one) time each day. 1 tablet 1 04/17/19 25 025 Discontinued(R eorder) valACYclovir (VALTREX) 500 mg tabletIndicatio ns:Herpes Take 1 tablet (500 mg total) by mouth 2 (two) times a day. 1 tablet 04/17/19 25 025 Discontinued(R eorder) cholecalciferol (VITAMIN D-3) 50 mcg (2,000 unit) capsuleIndicati ons:Vitamin D deficiency Take 1 capsule (2,000 Units total) by mouth 1 (one) time each day. 1 capsule 04/17/19 25 025 Discontinued(R eorder) losartan (COZAAR) 50 mg tabletIndicatio ns:Primary hypertension Take 1 tablet (50 mg total) by mouth 1 (one) time each day. 1 tablet 04/17/19 25 025 Discontinued(R eorder) methocarbamoL (ROBAXIN) 750 mg tablet Take 1 tablet (750 mg total) by mouth 4 (four) times a day for 10 days. 40 each 05/04/19 25 025 Discontinued(T herapy completed) Active Problems Problem Noted Date Diagnosed Date Microhematuria 01/13/2024 Class 3 severe obesity due t o excess calories with serious comorbidity and body mass index (BMI) of 45.0 to 49.9 in adult 01/13/2024 1st degree AV block 04/01/2020 Overview (01/13/2024): Last Assessment & Plan: She does have a first-degree AV block which I reviewed with her. She has no symptoms of dizziness. On the Holter monitor she had no significant pauses. Palpitations 04/01/2020 Overview (01/13/2024): Last Assessment & Plan: When the patient was in the hospital she was noted to have sinus tach and this was felt to be causing some of her palpitations. She did have a Holter monitor performed back in March. This was on the March which demonstrated predominant rhythm was sinus with a rate range of 60-136 bpm with a average heart rate of 86 bpm. She had 3 PVCs and 4 PACs. That time she had no symptoms. This time I did as I know she is feeling better on the current dose of carvedilol. This time we will not make a change. However she feels like the palpitations are continuing to be there and she is having no side effects from the carvedilol then will consider going up to 9.375 mg twice a day. Impingement syndrome of left shoulder 03/17/2020 Overview (01/13/2024): Seeing NEOS Ovarian cyst 11/09/2017 Overview (01/13/2024): ED visit, right, 11/06/17 Nonulcer dyspepsia 08/12/2017 Hydronephrosis of left kidney 07/16/2017 Overview (01/13/2024): US 06/20/12 - mild IBS (irritable bowel syndrome) 07/16/2017 Migraine 07/16/2017 Multiple fibroadenomata of both breasts 07/17/19 Overview (01/13/2024): 12/28/08 breast lump. 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 Hypertension 08/17/2016 Knee pain 08/17/2016 EDENILSON on CPAP 08/17/2016 Overview (01/13/2024): [facility] [place]ysomnogram: Date 11/19/2014; AHI 6, Unclassified apneas 0; Obstructive apneas 4; Central apneas 0; Mixed apneas 0; hypopneas 37; average oxygen saturation 94% (lowest 84% without saturations <88% for 5% or more of study) RBMG Polysomnogram treatment study. Date 08/15/2017. SE 95 % SM 96 %; spent 29 % of the study in REM. On CPAP @ 8; RDI 3.6 (AHI 1.8), Central apneas 0; Obstructive apneas 0; Mixed apneas 0; hypopneas 2; RERAs 2; and, average oxygen saturation was 95%. For the entire study, PLMs ~13. - Obstructive Sleep Apnea - mild; mostly hyponpeas; without sleep related hypoventilation by 2018 home polysomnogram. Encounters Date Type Department Care Team Description 05/05/2024 3:00 PM EST Office Visit Internal Medicine [address] [phone] Angelic Szymanski NP Chest pain, unspecified type (Primary Dx); Palpitations 05/03/2024 8:07 AM EST - 05/03/2024 12:20 PM EST Emergency [facility] Emergency [address] [place] [address] Jac Parikh DO Precordial pain (Primary Dx); Palpitations Discharge Disposition: Home or Self Care 04/21/2024 Telephone Internal Medicine [address] [phone] Alice Bryant DO information needed 04/18/2024 Nurse Triage Internal Medicine [address] [phone] Brunilda Frederick NP 04/17/2024 11:20 AM EST Lab Draw Station [address] Vitamin D deficiency; Confusion; Screening for metabolic disorder 04/17/2024 9:30 AM EST Office Visit Internal Medicine [address] [phone] Brunilda Frederick NP Screening for metabolic disorder (Primary Dx); Chronic migraine with aura without status migrainosus, not intractable; Primary hypertension; Herpes; Vitamin D deficiency; Abnormal CBC; Confusion; EDENILSON on CPAP 03/05/2024 5:56 PM EST - 03/05/2024 6:32 PM EST Emergency [facility] Emergency [address] [place] [address] Viral syndrome (Primary Dx) Discharge Disposition: Home or Self Care 02/18/2024 Telephone Internal [facility] [place] [address] [place] [address] Alice Bryant, DO DME Request ([employer] ) 02/17/2024 11:00 AM EST Office Visit Bariatric Surgery [facility] [address] [facility] [address] [place] [address] Raiza Stewart MD Class 3 severe obesity due to excess calories with serious comorbidity and body mass index (BMI) of 40.0 to 44.9 in adult ([facility]) (Primary Dx) from Last 3 Months Immunizations Name Administration Dates Next Due Influenza Quadravalent, MDCK , 0.5ml, preservative free (Flucelvax) 6mo and older 12/27/2019 Influenza trivalent, 0.5mL, preservative free (Fluarix; FluLaval; Fluzone) ages 6mo and older (Afluria) 3 years and older 12/11/2022,12/26/2012 CORP80 SARS-CoV-2 COVID-19, mRNA, LNP-S, preservative free 12/11/2022,12/07/2022,08/03/2020,07/12 Pneumococcal polysaccharide 23 valent (Pneumovax 23) 2yo and older 03/11/2020 Td Tetanus diptheria (Tdvax) 7yo and older 05/18/2022 Tdap Tetanus diptheria acell ular pertussis (Boostrix; Adacel) 7yo and older 01/15/2011 Surgical History Surgery Date Site/Laterality Comments HYSTERECTOMY 2012 PROCEDURE: HISTORICAL HYSTERECTOMY; COMMENT: with L oophorectomy COLONOSCOPY 02/04/2015 PROCEDURE: HISTORICAL COLONOSCOPY; COMMENT: with EGD KNEE SURGERY 11/2015 and 04/2016 Bilateral PROCEDURE: HISTORICAL KNEE SURGERY; COMMENT: meniscal repair and osteophyte removal; NEOS APPENDECTOMY 11/15/2016 PROCEDURE: HISTORICAL APPENDECTOMY HERNIA REPAIR 11/15/2016 PROCEDURE: HISTORICAL HERNIA REPAIR/UMB SALPINGOOPHORECTOMY 11/15/2016 Left PROCEDURE: DE LAPAROSCOPY W/RMVL ADNEXAL STRUCTURES; COMMENT: ruptured ovarian cyst COLONOSCOPY 02/12/2020 PROCEDURE: HISTORICAL COLONOSCOPY; COMMENT: Dr. Massey, int hemorrhoids KNEE ARTHROPLASTY 10/2020 Left PROCEDURE: DE ARTHRS KNEE ABRASION ARTHRP/FIRMWARE DEVELOPER DRLG/MICROFX; COMMENT: By Dr. Keyshawn Taylor - Total Knee Arthroplasty Medical History Medical History Date Comments EDENILSON on CPAP 08/17/2016 DX:EDENILSON on CPAP Morbid obesity with BMI of 4 0.0-44.9, adult (CMS/HCC) 08/17/2016 DX:Morbid obesity with BMI o f 40.0-44.9, adult ([facility]) Bipolar 2 disorder ([facility]/HCC) 08/17/2016 DX: Bipolar 2 disorder ([facility]) Knee pain 08/17/2016 DX:Knee pain Hypertension 08/17/2016 DX:Hypertension 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 DX:Detac hed vitreous humor; COMMENT: OS. 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 Bilateral Mammo & US 01/08/09 History of colonic polyps 07/16/2017 DX:His tory of colonic polyps; COMMENT: Colonoscopy 02/04/15. Sessile. Distal sigmoid - 8 mm, transverse colon - 5 mm and rectum - 5 mm. Migraine 07/16/2017 DX:Migraine Nonulcer dyspepsia 08/12/2017 DX:Nonulcer d yspepsia Microhematuria DX:Microhematuri a Palpitations 04/01/2020 DX:Palpitations 1st degree AV block 04/01/2020 DX:1st degre e AV block Hx of sinus tachycardia 04/01/2020 DX:Hx of sinus tachycardia Family History Medical History Relation Name Comments Hypertension Maternal Grandmother Alejandro is Asthma Mother end stage COPD, HTN- age 57 Hypertension Mother Relation Name Status Comments Maternal Grandmother Mother Social History Tobacco Use Types Packs/Day Years Used Date Smoking Tobacco: Never Smokeless Tobacco: Never Tobacco Cessation:Counseling Given: Not Answered Alcohol Use Standard Drinks/Week Comments Yes 0 [...] care for your loved ones. For example, child care center administrator or elderly care for an older adult? [...] on file Sexual Orientation Not on file Obstetrics History Last Filed Vital Signs Vital Sign Reading Time Taken Comments Blood Pressure 148/98 05/05/2024 3:00 PM EST A Pulse 92 05/05/2024 3:00 PM EST Temperature 36.7 ??C (98.1 ??F) 05/03/2024 11:[address] Respiratory Rate 18 05/03/2024 11:25 AM EST Oxygen Saturation 99% 05/03/2024 11:25 AM EST Inhaled Oxygen Concentration - - Weight 134 kg (296 lb 6.4 oz) 05/05/2024 3:00 PM EST Height 172.7 cm (5' 8 ) 05/05/2024 3:00 PM EST Body Mass Index 45.07 05/05/2024 3:00 PM EST Plan of Treatment Upcoming Encounters Date Type Department Care Team (Late st Contact Info) Description 05/18/2024 8:45 AM EDT Office Visit Bariatric Surgery - [place] [address] [phone] Raiza Stewart MD [address] [facility] [address] [place] [address] 05/26/2024 10:00 AM EDT Ancillary Procedure [facility] [address] [facility] [address] [place] [phone] 05/29/2024 1:00 PM EDT Office Visit [facility] Hematology Oncology [address] [place] [phone] Cindy Levin, [address] [place] [address] 06/15/2024 9:00 AM EDT Office Visit Internal Medicine - [facility] [address] [place] [phone] Brunilda Frederick, ALL[facility] [address] [place] [address] 07/13/2024 8:15 AM EDT Telemedicine [facility] [address] [place] [address] Joan Moreland MD [address] [place] [address] Health Maintenance Due Date Last Done Comments Breast Cancer Screening 1972 Hepatitis B Vaccines (1 of 3 - 19+ 3-dose series) 10/22/1991 Zoster Vaccines (1 of 2) 10/22/1991 Cervical Cancer Screening: Pap Smear 02/04/2016 02/03/2013, 02/03/2013 Pneumococcal Vaccine: 50+ Years (2 of 2 - PCV) 03/11/2021 03/11/2020 Pneumococcal Vaccine: Pediatrics (0 to 5 Years) and At-Risk Patients (6 to 64 Years) (2 of 2 - PCV) 03/11/2021 03/11/2020 HIV Screening 02/05/2022 COVID-19 Vaccine ( season) 2023 12/11/2022, 12/07/2022, 08/03/2020, Additional history exists Influenza Vaccine (#1) 2023 , 12/27/2019, 12/26/2012 Colorectal Cancer Screening: Colonoscopy 02/11/2025 02/12/2020 Depression Screening 04/16/2025 04/16/2024 Social Influencers of Health Screening 04/16/2025 04/16/2024 Hypertension/CHF/CAD Annual BMP Blood Test 05/03/2025 05/03/2024, 04/17/2024, 03/05/2024, Additional history exists Cholesterol Screening (Lipid Panel) 09/16/2028 09/17/2023, 09/17/2023 DTaP,Tdap,and Td Vaccines (3 - Td or Tdap) 05/18/2032 05/18/2022, 01/15/2011 Hepatitis C Screening Completed 09/17/2023 HIB Vaccines Aged Out No longer eligi ble based on patient's age to complete this topic HPV Vaccines Aged Out No longer eligi ble based on patient's age to complete this topic Hepatitis A Vaccines Aged Out No long er eligible based on patient's age to complete this topic IPV Vaccines Aged Out No longer eligi ble based on patient's age to complete this topic MMR Vaccines Aged Out No longer eligi ble based on patient's age to complete this topic Meningococcal ACWY Vaccine Aged Out N o longer eligible based on patient's age to complete this topic Meningococcal B Vacine Aged Out No lo nger eligible based on patient's age to complete this topic RSV Immunization Patients Under 20 months Aged Out No longer eligible based on patient's age to complete this topic Varicella Vaccines Aged Out No longer eligible based on patient's age to complete this topic Procedures Procedure Name Priority Date/Time Associated Diagnosis Comments ECG 12-LEAD Routine 05/05/2024 4:10 PM EST Chest pain, unspecified type Palpitations ECG ANNOTATED 05/04/2024 CT ANGIO CHEST WO AND/OR W CONTRAST STAT 05/03/2024 9:20 AM EST Precordial pain CT ANGIO HEAD/NECK WO AND/OR W CONTRAST STAT 05/03/2024 9:20 AM EST XR CHEST 2 VIEWS STAT 05/03/2024 5:08 AM EST TROPONIN I HIGH SENSITIVITY STAT 05/03/2024 3:59 AM EST TRIIODOTHYRONINE FREE STAT 05/03/2024 12:10 AM EST FREE THYROXINE WITH REFLEX TO FREE TRIIODOTHYRONINE STAT 05/03/2024 12:10 AM EST THYROID STIMULATING HORMONE WITH REFLEX TO FREE T4 AND FREE T3 STAT Add-on 05/03/2024 12:10 AM EST CBC WITH AUTO DIFFERENTIAL STAT 05/03/2024 12:10 AM EST B-TYPE NATRIURETIC PEPTIDE STAT 05/03/2024 12:10 AM EST MAGNESIUM STAT 05/03/2024 12:10 AM EST LIPASE STAT 05/03/2024 12:10 AM EST COMPREHENSIVE METABOLIC PANEL STAT 05/03/2024 12:10 AM EST CBC AND DIFFERENTIAL STAT 05/03/2024 12:10 AM EST TROPONIN I HIGH SENSITIVITY STAT 05/03/2024 12:10 AM EST ECG 12-LEAD STAT 05/02/2024 11:32 PM EST DE SLEEP STUDY ATTENDED 04/25/2024 URINALYSIS WITH REFLEX MICROSCOPIC AND CULTURE Routine 04/17/2024 11:47 AM EST Confusion COMPREHENSIVE METABOLIC PANEL Routine 04/17/2024 11:47 AM EST Screening for metabolic disorder Confusion HEMOGLOBIN A1C Routine 04/17/2024 11:47 AM EST Confusion MAGNESIUM Routine 04/17/2024 11:47 AM EST Confusion VITAMIN D 25 HYDROXY Routine 04/17/2024 11:47 AM EST Vitamin D deficiency VALDEZ URINE CULTURE TUBE Routine 04/17/19 11:43 AM EST Confusion URINALYSIS WITH REFLEX MICROSCOPIC AND CULTURE Routine 04/17/2024 11:43 AM EST Confusion TROPONIN I HIGH SENSITIVITY STAT 03/05/2024 3:01 PM EST XR CHEST 2 VIEWS STAT 03/05/2024 12:2 2 PM EST CBC WITH AUTO DIFFERENTIAL STAT 03/05/2024 12:08 PM EST TROPONIN I HIGH SENSITIVITY STAT 03/05/2024 12:08 PM EST BASIC METABOLIC PANEL STAT 03/05/2024 12:08 PM EST CBC AND DIFFERENTIAL STAT 03/05/2024 12:08 PM EST ECG 12-LEAD STAT 03/05/2024 11:22 AM EST ECG ANNOTATED 03/05/2024 HM HEPATITIS C SCREENING Routine 09/17/2023 LIPID PANEL Routine 09/17/2023 COLONOSCOPY Routine 02/12/2020 HPV Routine 02/03/2013 from Last 3 Months or Most Recently Relevant to Health Maintenance Results * ECG 12 lead (05/05/2024 4:10 PM EST) Only the most recent of3 resultswithin the time period is included. Narrative Angelic Szymanski NP - 05/05/2024 4:10 PM EST Sinus tachycardia, ventricular premature complex, prolonged DE interval, RSR Angelic Szymanski NP ECG ORDERABLES Final Result * ECG-Annotated (05/04/2024) Only the most recent of2 resultswithin the time period is included. us Provider Onbase ECG ORDERABLES Final Result * CT Angio Head/Neck wo and/or w Contrast (05/03/2024 9:20 AM EST) Anatomical Region Laterality Modality Head and Neck Computed Tomogra phy 05/03/2024 9:38 AM EST Impressions 05/03/2024 9:43 AM EST Normal exam -------- FINAL REPORT -------- Dictated By: DUSTY LEMUS Dictated Date: 05/03/2024 09:38 ET Assigned Physician: DUSTY LEMUS Reviewed and Electronically Signed By: DUSTY LEMUS Signed Date: 05/03/2024 09:43 ET Workstation ID: [id number] Transcribed By: Self Edit Transcribed Date: 05/03/2024 [...] aneurysm or vascular malformation. Procedure Note Dusty Lemus MD - 05/03/2024 PROCEDURE: Head CT and [...] -------- FINAL REPORT -------- Dictated By: DUSTY LEMUS Dictated Date: 05/03/2024 09:38 ET Assigned Physician: DUSTY LEMUS Reviewed and Electronically Signed By: DUSTY LEMUS Signed Date: 05/03/2024 09:43 ET Workstation ID: [id number] Transcribed By: Self Edit Transcribed Date: 05/03/2024 [...] -------- FINAL REPORT -------- Dictated By: DUSTY LEMUS Dictated Date: 05/03/2024 09:33 ET Assigned Physician: DUSTY LEMUS Reviewed and Electronically Signed By: DUSTY LEMUS Signed Date: 05/03/2024 09:37 ET Workstation ID: [id number] Transcribed By: Self Edit Transcribed Date: 05/03/2024 [...] changes seen throughout the bones. Procedure Note Dusty Lemus MD - 05/03/2024 PROCEDURE: Chest CTA INDICATION: [...] -------- FINAL REPORT -------- Dictated By: DUSTY LEMUS Dictated Date: 05/03/2024 09:33 ET Assigned Physician: DUSTY LEMUS Reviewed and Electronically Signed By: DUSTY LEMUS Signed Date: 05/03/2024 09:37 ET Workstation ID: [id number] Transcribed By: Self Edit Transcribed Date: 05/03/2024 09:33 ET Jac Parikh DO IMG CT PROCEDURES Final Result * XR Chest 2 Views (05/03/2024 5:08 AM EST) Only the most recent of2 resultswithin the time period is included. Anatomical Region Laterality Modality Body Radiographic Kassy ging 05/03/2024 8:24 AM EST Impressions 05/03/2024 8:25 AM EST No acute findings. -------- FINAL REPORT -------- Dictated By: Nixon Naidu Dictated Date: 05/03/2024 08:24 ET Assigned Physician: Nixon Naidu Reviewed and Electronically Signed By: Nixon Naidu Signed Date: 05/03/2024 08:25 ET Workstation ID: [id number] Transcribed By: Self Edit Transcribed Date: 05/03/2024 [...] Signed Date: 05/03/2024 08:25 ET Workstation ID: [id number] Transcribed By: Self Edit Transcribed Date: 05/03/2024 08:24 ET Jac Parikh DO IMG XR PROCEDURES Final Result * Troponin I high sensitivity (05/03/2024 3:59 AM EST) Only the most recent of4 resultswithin the time period is included. High Sensitivity Troponin I 3 <=54 ng/L LAB CHEMISTRY METHOD 05/03/2024 4:[address] [facility] Blood Venous blood specimen / Unknown Venipuncture / Unknown 05/03/2024 3:59 AM EST 05/03/2024 4:[address] [facility] - 05/03/2024 4:40 AM EST High levels of biotin in samples may falsely decrease hsTroponin values. ??Use caution when interpreting hsTroponin results in patients taking biotin who exhibit renal impairment (eGFR <60) or in patients taking more than 20 mg/day of biotin. us Jac Parikh DO LAB BLOOD ORDERABLES Final Res ult [facility] [address] [place] [address], [place] [phone] * (ABNORMAL) Thyroid stimulating hormone with reflex to free t4 and free t3 (TSH Reflex) (05/03/2024 12:10 AM EST) TSH 4.32(H) 0.40 - 4.00 mcIU/mL LAB CHEMISTRY METHOD 05/03/2024 9:[address] [facility] Blood Venous blood specimen / Unknown Venipuncture / Unknown 05/03/2024 12:10 AM EST 05/03/2024 12:48 AM EST Jac Parikh DO LAB BLOOD ORDERABLES Final Res ult Performing Organization Address [facility]/ZIP Co de Phone Number [facility] [address] [place] [address], [place] [phone] * Free thyroxine with reflex to free triiodothyronine (05/03/2024 12:10 AM EST) Pathologist [facility] Free T4 1.32 0.70 - 1.80 ng/dL LAB CHEMISTRY METHOD 05/03/2024 9:[address] [facility] Blood Venous blood specimen / Unknown Venipuncture / Unknown 05/03/2024 12:10 AM EST 05/03/2024 12:48 AM EST Jac Parikh DO LAB BLOOD ORDERABLES Final Res ult Performing Organization Address City/[facility]/ZIP Co de Phone Number [facility] [address] [place] [address], [place] [phone] * (ABNORMAL) CBC auto differential (05/03/2024 12:10 AM EST) Only the most recent of2 resultswithin the time period is included. WBC 9.7 4.8 - 10.8 K/mcL LAB HEMETOLOGY METHOD 05/03/2024 12:[address] [facility] RBC 5.50(H) 3.80 - 4.80 M/mcL LAB HEMETOLOGY METHOD 05/03/2024 12:53 AM [facility] Hemoglobin 13.2 11.5 - 16.0 g/dL LAB HEMETOLOGY METHOD 05/03/2024 12:53 AM [facility] Hematocrit 43.0 35.0 - 47.0 % LAB HEMETOLOGY METHOD 05/03/2024 12:53 AM [facility] MCV 78.2(L) 79.0 - 98.0 FL LAB HEMETOLOGY METHOD 05/03/2024 12:53 AM [facility] MCH 24.0(L) 27.0 - 32.0 pcg LAB HEMETOLOGY METHOD 05/03/2024 12:53 AM [facility] MCHC 30.7(L) 32.0 - 37.0 g/dL LAB HEMETOLOGY METHOD 05/03/2024 12:53 AM [facility] RDW 15.1(H) 11.0 - 15.0 % LAB HEMETOLOGY METHOD 05/03/2024 12:53 AM [facility] Platelets 394 130 - 400 K/mcL LAB HEMETOLOGY METHOD 05/03/2024 12:53 AM [facility] MPV 9.2 7.0 - 11.0 FL LAB HEMETOLOGY METHOD 05/03/2024 12:53 AM [facility] NRBC 0.0 <1.0 % LAB HEMETOLOGY METHOD 05/03/2024 12:53 AM [facility] NRBC Absolute 0.00 <0.10 K/mcL LAB HEMETOLOGY METHOD 05/03/2024 12:53 AM [facility] Neutrophils Relative 56.5 % LAB HEMETOLOGY METHOD 05/03/2024 12:53 AM [facility] Lymphocytes Relative 35.2 % LAB HEMETOLOGY METHOD 05/03/2024 12:53 AM [facility] Monocytes Relative 6.3 % LAB HEMETOLOGY METHOD 05/03/2024 12:53 AM [facility] Eosinophils Relative 1.3 % LAB HEMETOLOGY METHOD 05/03/2024 12:53 AM [facility] Basophils Relative 0.4 % LAB HEMETOLOGY METHOD 05/03/2024 12:53 AM [facility] Immature Granulocytes Relative 0.3 % LAB HEMETOLOGY METHOD 05/03/2024 12:53 AM [facility] Neutrophils Absolute 5.45 1.50 - 7.00 K/mcL LAB HEMETOLOGY METHOD 05/03/2024 12:53 AM [facility] Lymphocytes Absolute 3.40 1.00 - 5.00 K/mcL LAB HEMETOLOGY METHOD 05/03/2024 12:53 AM [facility] Monocytes Absolute 0.61 0.20 - 1.00 K/mcL LAB HEMETOLOGY METHOD 05/03/2024 12:53 AM [facility] [facility] Eosinophils Absolute 0.13 0.00 - 0.50 K/mcL LAB HEMETOLOGY METHOD 05/03/2024 12:53 AM [facility] Basophils Absolute 0.04 0.00 - 0.20 K/mcL LAB HEMETOLOGY METHOD 05/03/2024 12:53 AM [facility] Immature Granulocytes Absolute 0.03 0.00 - 0.03 K/mcL LAB HEMETOLOGY METHOD 05/03/2024 12:53 AM [facility] Blood Venous blood specimen / Unknown Venipuncture / Unknown 05/03/2024 12:10 AM EST 05/03/2024 12:48 AM EST us Jac Parikh DO LAB BLOOD ORDERABLES Final Res ult [facility] [address] [place] [address], [place] [phone] * Triiodothyronine free (05/03/2024 12:10 AM EST) T3, Free 406 230 - 420 pcg/dL LAB CHEMISTRY METHOD 05/03/2024 10:[address] [facility] Blood Venous blood specimen / Unknown Venipuncture / Unknown 05/03/2024 12:10 AM EST 05/03/2024 12:48 AM EST us Jac Parikh DO LAB BLOOD ORDERABLES Final Res ult [facility] [address] [place] [address], [place] [phone] * B-type natriuretic peptide (05/03/2024 12:10 AM EST) [facility] BNP 10 <=100 pcg/mL LAB CHEMISTRY METHOD 05/03/2024 1:[address] [facility] Blood Venous blood specimen / Unknown Venipuncture / Unknown 05/03/2024 12:10 AM EST 05/03/2024 12:48 AM EST us Jac Parikh DO LAB BLOOD ORDERABLES Final Res ult [facility] [address] [place] [address], [place] [phone] * Magnesium (05/03/2024 12:10 AM EST) Only the most recent of2 resultswithin the time period is included. Magnesium 2.0 1.9 - 2.6 mg/dL LAB CHEMISTRY METHOD 05/03/2024 1:[address] [facility] Blood Venous blood specimen / Unknown Venipuncture / Unknown 05/03/2024 12:10 AM EST 05/03/2024 12:48 AM EST us Jac Parikh DO LAB BLOOD ORDERABLES Final Res ult Performing Organization Address [facility]/ZIP Co de Phone Number [facility] [address] [place] [address], [place] [phone] * Lipase (05/03/2024 12:10 AM EST) Pathologist [facility] Lipase 27 13 - 75 unit/L LAB CHEMISTRY METHOD 05/03/2024 1:25 AM [facility] Blood Venous blood specimen / Unknown Venipuncture / Unknown 05/03/2024 12:10 AM EST 05/03/2024 12:48 AM EST us Jac Parikh DO LAB BLOOD ORDERABLES Final Res ult Performing Organization Address [facility] de Phone Number [facility] [address] [place] [address], [place] [phone] * Comprehensive metabolic panel (05/03/2024 12:10 AM EST) Only the most recent of2 resultswithin the time period is included. Pathologist [facility] Sodium 140 133 - 145 mmol/L LAB CHEMISTRY METHOD 05/03/2024 1:25 AM [facility] Potassium 4.3 3.5 - 5.5 mmol/L LAB CHEMISTRY METHOD 05/03/2024 1:25 AM [facility] Chloride 105 96 - 110 mmol/L LAB CHEMISTRY METHOD 05/03/2024 1:25 AM [facility] CO2 29 21 - 32 mmol/L LAB CHEMISTRY METHOD 05/03/2024 1:25 AM [facility] Anion Gap 6 3 - 11 LAB CHEMISTRY METHOD 05/03/2024 1:25 AM [facility] Glucose 87 70 - 100 mg/dL LAB CHEMISTRY METHOD 05/03/2024 1:25 AM [facility] BUN 12 5 - 25 mg/dL LAB CHEMISTRY METHOD 05/03/2024 1:25 AM [facility] Creatinine 0.87 0.50 - 1.10 mg/dL LAB CHEMISTRY METHOD 05/03/2024 1:25 AM [facility] eGFR 81 >=60 mL/min/1. 73m2 LAB CHEMISTRY METHOD 05/03/2024 1:25 AM [facility] Comment:Calculation based on the??Chronic Kidney Disease Epidemiology Collaboration (CKD-EPI) equation refit??without adjustment for race. BUN/Creatinine Ratio 13.8 LAB CHEMISTRY METHOD 05/03/2024 1:25 AM [facility] Calcium 10.3 8.5 - 10.5 mg/dL LAB CHEMISTRY METHOD 05/03/2024 1:25 AM [facility] AST (SGOT) 20 10 - 42 unit/L LAB CHEMISTRY METHOD 05/03/2024 1:25 AM [facility] ALT (SGPT) 20 10 - 60 unit/L LAB CHEMISTRY METHOD 05/03/2024 1:25 AM [facility] Alkaline Phosphatase 81 42 - 121 unit/L LAB CHEMISTRY METHOD 05/03/2024 1:25 AM [facility] Total Protein 7.8 6.0 - 8.0 g/dL LAB CHEMISTRY METHOD 05/03/2024 1:25 AM [facility] Albumin 3.9 3.2 - 5.0 g/dL LAB CHEMISTRY METHOD 05/03/2024 1:25 AM [facility] Total Bilirubin 0.3 0.0 - 1.4 mg/dL LAB CHEMISTRY METHOD 05/03/2024 1:25 AM [facility] Blood Venous blood specimen / Unknown Venipuncture / Unknown 05/03/2024 12:10 AM EST 05/03/2024 12:48 AM EST Jac P Neenan DO LAB BLOOD ORDERABLES Final Res ult [facility] [address] [place] [address], [place] [phone] * General sleep study (04/25/2024) Provider [facility] SLEEP C[facility] ORDERABLES Final Result * (ABNORMAL) Urinalysis with reflex microscopic and culture (04/17/2024 11:47 AM EST) Pathologist [facility] Specific [place] Urine 1.014 1.003 - 1.030 LAB URINALYSIS - AUTOMATED METHOD 04/17/2024 3:04 PM [facility] pH, Urine 7.0 5.0 - 8.0 pH LAB URINALYSIS - AUTOMATED METHOD 04/17/2024 3:04 PM [facility] Leukocytes, Urine Negative Negative LAB URINALYSIS - AUTOMATED METHOD 04/17/2024 3:04 PM [facility] Nitrite, Urine Negative Negative LAB URINALYSIS - AUTOMATED METHOD 04/17/2024 3:04 PM [facility] Protein, Urine Negative <=Trace mg/dL LAB URINALYSIS - AUTOMATED METHOD 04/17/2024 3:04 PM [facility] Glucose, Urine Negative Negative mg/dL LAB URINALYSIS - AUTOMATED METHOD 04/17/2024 3:04 PM [facility] Ketones, Urine Negative Negative mg/dL LAB URINALYSIS - AUTOMATED METHOD 04/17/2024 3:04 PM [facility] Urobilinogen, Urine 0.2 0.2 - 1.0 mg/dL LAB URINALYSIS - AUTOMATED METHOD 04/17/2024 3:04 PM [facility] Bilirubin, Urine Negative Negative LAB URINALYSIS - AUTOMATED METHOD 04/17/2024 3:04 PM [facility] Blood, Urine Small(A) Negative LAB URINALYSIS - AUTOMATED METHOD 04/17/2024 3:04 PM [facility] RBC, Urine 6.1(H) 0 - 4 /HPF LAB URINALYSIS - AUTOMATED METHOD 04/17/2024 3:04 PM [facility] WBC, Urine 0.5 0 - 4 /HPF LAB URINALYSIS - AUTOMATED METHOD 04/17/2024 3:04 PM [facility] Squamous Epithelial, Urine 28 0 - 60 /LPF LAB URINALYSIS - AUTOMATED METHOD 04/17/2024 3:04 PM [facility] Bacteria, Urine Negative Negative /HPF LAB URINALYSIS - AUTOMATED METHOD 04/17/2024 3:04 PM [facility] Hyaline Casts, Urine 0.0 0 - 3 /LPF LAB URINALYSIS - AUTOMATED METHOD 04/17/2024 3:04 PM [facility] Urine Urine specimen obtained by clean catch procedure / Unknown Non-blood Collection / Unknown 04/17/2024 11:47 AM EST 04/17/2024 11:47 AM EST us Brunilda Clarke NP LAB URINE ORDERABLES Final R esult Performing Organization Address City/[facility]/ZIP Co de Phone Number [facility] [address] [place] [address], * Vitamin D 25 hydroxy (04/17/2024 11:47 AM EST) Vit D, 25-Hydroxy 35.8 30.0 - 80.0 ng/mL LAB CHEMISTRY METHOD 04/17/2024 2:[address] [facility] Blood Venous blood specimen / Unknown Venipuncture / Unknown 04/17/2024 11:47 AM EST 04/17/2024 11:47 AM EST us Brunilda Clarke FOOD SAFETY SPECIALIST LAB BLOOD ORDERABLES Final R esult [facility] [address] [place] [address], [place] [phone] * Hemoglobin A1c (04/17/2024 11:47 AM EST) Pathologist [facility] Hemoglobin A1C 5.3 <6.5 % LAB CHEMISTRY METHOD 04/17/2024 9:[address] [facility] Mean Bld Glu Estim. 105 mg/dL LAB CHEMISTRY METHOD 04/17/2024 9:18 PM [facility] Blood Venous blood specimen / Unknown Venipuncture / Unknown 04/17/2024 11:47 AM EST 04/17/2024 11:47 AM EST us Brunilda Clarke FOOD SAFETY SPECIALIST LAB BLOOD ORDERABLES Final R esult Performing Organization Address City/[facility]/ZIP Co de Phone Number [facility] [address] [place] [address], [place] [phone] * Valdez urine culture tube (04/17/2024 11:43 AM EST) [facility] Extra Tube Hold for add-ons. 04/17/2024 5:[address] [facility] Comment:Auto resulted. Urine Urine specimen obtained by clean catch procedure / Unknown Non-blood Collection / Unknown 04/17/2024 11:43 AM EST 04/17/2024 11:43 AM EST us Brunilda Clarke FOOD SAFETY SPECIALIST LAB URINE ORDERABLES Final R esult [facility] [address] [place] [address], [place] [phone] * (ABNORMAL) Basic metabolic panel (03/05/2024 12:08 PM EST) [facility] Sodium 139 133 - 145 mmol/L LAB CHEMISTRY METHOD 03/05/2024 1:[address] [facility] Potassium 4.3 3.5 - 5.5 mmol/L LAB CHEMISTRY METHOD 03/05/2024 1:09 PM [facility] Chloride 108 96 - 110 mmol/L LAB CHEMISTRY METHOD 03/05/2024 1:09 PM [facility] CO2 29 21 - 32 mmol/L LAB CHEMISTRY METHOD 03/05/2024 1:09 PM [facility] Anion Gap 2(L) 3 - 11 LAB CHEMISTRY METHOD 03/05/2024 1:09 PM [facility] Glucose 91 70 - 100 mg/dL LAB CHEMISTRY METHOD 03/05/2024 1:09 PM [facility] BUN 11 5 - 25 mg/dL LAB CHEMISTRY METHOD 03/05/2024 1:09 PM [facility] Creatinine 0.88 0.50 - 1.10 mg/dL LAB CHEMISTRY METHOD 03/05/2024 1:09 PM [facility] eGFR 80 >=60 mL/min/1. 73m2 LAB CHEMISTRY METHOD 03/05/2024 1:09 PM [facility] Comment:Calculation based on the??Chronic Kidney Disease Epidemiology Collaboration (CKD-EPI) equation refit??without adjustment for race. BUN/Creatinine Ratio 12.5 LAB CHEMISTRY METHOD 03/05/2024 1:09 PM [facility] Calcium 9.9 8.5 - 10.5 mg/dL LAB CHEMISTRY METHOD 03/05/2024 1:09 PM [facility] Blood Venous blood specimen / Unknown Venipuncture / Unknown 03/05/2024 12:08 PM EST 03/05/2024 12:22 PM EST us Leighton Dodd DO LAB BLOOD ORDERABLES Final Result [facility] [address] [place] [address], * Hepatitis C Screening (09/17/2023) [facility] Hepatitis C Screening abstracted [facility] Provider HEALTH MAINTENANCE Final Result * Lipid panel (09/17/2023) [facility] LDL/HDL Ratio 3 0 - 4 Triglycerides 90 0 - 150 mg/dL Cholesterol 143 0 - 200 mg/dL HDL 46 >=40 mg/dL LDL Cholesterol 79 0 - 100 mg/dL Blood Venous blood specimen / Unknown [facility] Provider LAB BLOOD ORDERABLES Darlene l Result * Colonoscopy (02/12/2020) [facility] Colonoscopy no interpreta tion,abstr acted Anatomical Region Laterality Modality Other [facility] Provider HEALTH MAINTENANCE Final Result * Cervical Cancer Screening: HPV (02/03/2013) [facility] Cervical Cancer Screening: HPV negative,a bstracted [facility] Provider HEALTH MAINTENANCE Final Result from Last 3 Months or Most Recently Relevant to Health Maintenance [place] [address] [place] [address] [employer] Care Teams Condemnation Engineer Relationship Specialty Start Date End Date Alice Bryant DO [facility] [place] [address] PCP - General Internal Medicine 02/10/24
--- OUTSIDE RECORDS SUMMARY | 2024-05-15 17:04 | XMS_ITS | Encounter Summary ---
Author Organization [facility] Address [address] [place] [address] Care Team Providers Care Seismograph Operator Name Role Phone Alice Bryant DO Primary Care Provider [phone] Encounter Details Date Type Department Care Team (Late st Contact Info) Description 04/18/2024 Nurse Triage Internal Medicine - [facility] [address] [place] [address] Brunilda Frederick, ALLEN [address] [place] [address] Social History Tobacco Use Types Packs/Day Years [...] for your loved ones. For example, child welfare consultant or elderly care for an older adult? [...] on file documented as of this encounter Progress Notes * Leanne Ferrell RN - 05/04/2024 10:47 AM EST RN called and scheduled the patient for an ER follow up for tomorrow 05/05/24 with Angelic Szymanski. Pt was seen at [facility] ER for palpitations and the patient is concerned about her elevated thyroid levels. * Brittany Briones MA - 04/20/2024 1:55 PM EST Please see mychart msg documented in this encounter Plan of Treatment Upcoming Encounters Date Type Department Care Team (Late st Contact Info) Description 05/18/2024 8:45 AM EDT Office Visit Bariatric Surgery - [place] [address] [facility] [address] [place] [phone] Raiza Stewart MD [address] [facility] [address] [place] [address] 05/26/2024 10:00 AM EDT Ancillary Procedure [facility] - [facility] [address] [facility] [address] [place] [phone] 05/29/2024 1:00 PM EDT Office Visit [facility] Hematology Oncology [address] [place] [phone] Cindy Levin, DO [address] [place] [address] 06/15/2024 9:00 AM EDT Office Visit Internal Medicine - [facility] [address] [place] [address] Brunilda Frederick, ALLEN [address] [place] [address] 07/13/2024 8:15 AM EDT Telemedicine [facility] for [place] - [place] [address] [facility] [address] [place] [phone] Joan Moreland MD [address] [place] [address] documented as of this encounter Visit Diagnoses Not on filedocumented in this encounter Additional Health Concerns Assessment Noted Time PHQ-9 Depression Total Score: 0 04/16/19 25 2:32 PM EST documented as of this encounter Care Teams Seismograph Operator Relationship Specialty Start Date End Date Alice Bryant DO [address] [facility] [place] [id number] PCP - General Internal Medicine 02/10/24 documented as of this encounter
--- OUTSIDE RECORDS SUMMARY | 2024-05-15 17:04 | XMS_ITS | Encounter Summary ---
Author Organization [facility] Address [address] [place] [address] Care Team Providers Care Wound Treatment Rn Name Role Phone Alice Bryant DO Primary Care Provider [phone] Reason for Visit * Reason Onset Date Comments information needed 04/21/2024 Encounter Details Date Type Department Care Team (Late st Contact Info) Description 04/21/2024 Telephone Internal Medicine - [place] [address] [place] [address] Alice Bryant DO [address] [place] [address] information needed Social History Tobacco Use Types Packs/Day Years [...] care for your loved ones. For example, infant childcare provider or elderly care for an older adult? [...] as of this encounter Progress Notes * Brittany Briones MA - 04/21/2024 10:22 AM EST Test is printed and faxed * Edith Park - 04/21/2024 9:42 AM EST [facility] called today to request a copy of the pts. Sleep study she had done. Please fax to [phone] if we do not have this information please advise them of this. Thank you documented in this encounter Plan of Treatment Upcoming Encounters Date Type Department Care Team (Late st Contact Info) Description 05/18/2024 8:45 AM EDT Office Visit Bariatric Surgery - [place] 175 [facility] [address] [place] [phone] Raiza Stewart MD 175 [facility] [address] [place] [address] 05/26/2024 10:00 AM EDT Ancillary Procedure [facility] - [facility] [address] [facility] [address] [place] [phone] 05/29/2024 1:00 PM EDT Office Visit [facility] Hematology Oncology [address] [place] [phone] Cindy Levin, DO [address] [place] [address] 06/15/2024 9:00 AM EDT Office Visit Internal Medicine - [facility] [address] [place] [address] Brunilda Frederick, ALLEN [address] [place] [address] 07/13/2024 8:15 AM EDT Telemedicine [facility] for [place] - [place] [address] [facility] [address] [place] [address] Joan Moreland MD [address] [place] [address] documented as of this encounter Visit Diagnoses Not on filedocumented in this encounter Additional Health Concerns Assessment Noted Time PHQ-9 Depression Total Score: 0 04/16/19 25 2:32 PM EST documented as of this encounter Care Teams Wound Treatment Rn Relationship Specialty Start Date End Date Alice Bryant DO [address] [facility] [place] [address] PCP - General Internal Medicine 02/10/24 documented as of this encounter
--- OUTSIDE RECORDS SUMMARY | 2024-05-15 17:04 | XMS_ITS | Encounter Summary ---
Author Organization [facility] Address [address] [place] [address] Care Team Providers Care Universal Grinder Tool Name Role Phone Alice Bryant DO Primary Care Provider [phone] Reason for Referral * Consultation (Urgent) - Authorized Specialty Diagnoses / Procedures Referred By Lauren wallace Referred To Contact Diagnoses EDENILSON on CPAP Brunilda Frederick NP [address] [place] [address] Phone: tel: fax: [address] Phone: tel: Referral ID Status Reason Start Date Expiration Date Visits Requested Visits Authorized [id number] Authorized Specialty Services Required 04/17/2024 04/17/2025 6 6 * Consultation (Routine) - Authorized Specialty Diagnoses / Procedures Referred By Lauren wallace Referred To Contact Neurology Diagnoses Confusion Brunilda Frederick NP [address] [place] [address] Phone: tel: fax: [facility] [address] [facility] [address] [place] [address] Phone: tel: fax: Referral ID Status Reason Start Date Expiration Date Visits Requested Visits Authorized [id number] Authorized Specialty Services Required 04/17/2024 04/17/2025 1 1 * Consultation (Routine) - Authorized Specialty Diagnoses / Procedures Referred By Contact Referred To Contact Hematology / Hematology and Oncology Diagnoses Abnormal CBC Brunilda Frederick NP [address] [place] [address] Phone: tel: fax: [facility] Hematology Oncology [address] [place] [address] Phone: tel: fax: Referral ID Status Reason Start Date Expiration Date Visits Requested Visits Authorized [id number] Authorized Specialty Services Required 04/17/2024 04/17/2025 1 1 Reason for Visit * Reason Comments Memory Loss Per pt things are be coming unfamiliar x months Encounter Details Date Type Department Care Team (Late st Contact Info) Description 04/17/2024 9:30 AM EST Office Visit Internal Medicine - [address] [address] Brunilda Frederick NP [address] [place] [id number] Screening for metabolic disorder (Primary Dx); Chronic migraine with aura without status migrainosus, not intractable; Primary hypertension; Herpes; Vitamin D deficiency; Abnormal CBC; Confusion; EDENILSON on CPAP Social History Tobacco Use Types Packs/Day Years [...] your loved ones. For example, child welfare social worker or elderly care for an older adult? [...] Sign Reading Time Taken Comments Blood Pressure 136/68 04/17/2024 10:56 AM EST Pulse 82 04/17/2024 9:39 AM EST Temperature - - Respiratory Rate - - Oxygen Saturation - - Inhaled Oxygen Concentration - - Weight 134 kg (294 lb 8 oz) 04/17/2024 9:[address] Height 172.7 cm (5' 8 ) 04/17/2024 9:39 AM EST Body Mass Index 44.78 04/17/2024 9:39 AM EST documented in this encounter Ordered Prescriptions Prescription Sig Dispense Quantity Refills Last Filled Start Date End Date losartan (COZAAR) 50 mg tabletIndications: Primary hypertension Take 1 tablet (50 mg total) by mouth 1 (one) time each day. 1 tablet 04/17/2024 5 cholecalciferol (VITAMIN D-3) 50 mcg (2,000 unit) capsuleIndications :Vitamin D deficiency Take 1 capsule (2,000 Units total) by mouth 1 (one) time each day. 1 capsule 04/17/2024 5 valACYclovir (VALTREX) 500 mg tabletIndications: Herpes Take 1 tablet (500 mg total) by mouth 2 (two) times a day. 1 tablet 04/17/2024 5 amLODIPine (NORVASC) 5 mg tabletIndications: Primary hypertension Take 1 tablet (5 mg total) by mouth 1 (one) time each day. 1 tablet 1 04/17/2024 5 documented in this encounter Progress Notes * Brunilda Clarke, ALLEN - 04/17/2024 9:30 AM EST CHIEF COMPLAINT: Memory Loss (Per pt things are becoming unfamiliar x months ) HPI: Sade Farmer is a 53 y.o. old female with PMH of migraines, EDENILSON, hypertension, vitamin D deficiency, IBS, obesity, bipolar disease. Patient is here today due to having increased confusion noted. 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 States has been working with the same people and forgets to her name at times regardless of the time she has known them. Patient states she is forgetting to say words or has difficulty finding the right word. States not able to say what she means until she finds that word. The patient is also having increased confusion with doing things. Patient states last week was using one of her home appliances and she forgot how to use it and could not figure it out. Patient continued to try and finally was able to get it to work. Patient states she has had this appliance for a while and she can remember howto use it during this visit but at that point she could not. Patient also states that she is having right herself notes to remember things. She is also forgetting things that she has said and cannot remember conversations at times. Patient is also requesting a pulmonary referral due to having EDENILSON and using CPAP nightly. However, per patient, has used the machine for about 8 years and the machine is saying that the life of the battery is exceeded. Patient will need a new sleep apnea machine. Patient requesting medication refills. ROS: See HPI for pertinent positives Constitutional: no weakness fever/ sweats, or weight change HEENT: no acute vision changes, ear pain, sore throat, nasal discharge. Respiratory: no shortness of breath, cough or wheezing Cardiovascular:no chest pain or palpitations, no orthopnea or edema GI: no nausea, vomiting or diarrhea; no rectal bleeding or dark stools MSK: no joint or muscle pain, swelling or impaired ROM Neuro: no acute headaches, dizziness, weakness. PHYSICAL EXAM: Visit Vitals BP 136/68 Pulse 82 Ht 1.727 m (68 ) Wt 134 kg (294 lb 8 oz) LMP (LMP Unknown) BMI 44.78 kg/m?? OB Status Hysterectomy Smoking Status Never BSA 2.41 m?? APPEARANCE: Alert and in no acute distress HEART: RRR with normal S1 and S2, no murmurs, no gallops LUNG: Clear to auscultation bilaterally. Able to talk in full complete sentences ABDOMEN: Bowel sounds normoactive, soft, non-tender, without organomegaly or palpable masses. EXTREMITIES: Extremities warm and well perfused without clubbing, cyanosis, or edema. NEURO: Alert and oriented x 3. CN II-XII intact. Gait steady. Strength 5 out of 5 on upper and lower extremities. +2 reflexes noted upper and lower body. PAST MEDICAL HISTORY: Patient Active Problem List Diagnosis 1st degree AV block TISH positive Bipolar 2 disorder (CMS/HCC) Detached vitreous humor Hydronephrosis of left kidney Hypertension IBS (irritable bowel syndrome) Impingement syndrome of left shoulder Knee pain Microhematuria Migraine Multiple fibroadenomata of both breasts Nonulcer dyspepsia EDENILSON on CPAP Ovarian cyst Palpitations Vitamin D deficiency Class 3 severe obesity due to excess calories with serious comorbidity and body mass index (BMI) of45.0 to 49.9 in adult ([facility]) ACTIVE MEDICATIONS: Outpatient Medications Marked as Taking for the 04/17/24 encounter (Office Visit) with Brunilda Clarke NP Medication Sig Dispense Refill amLODIPine (NORVASC) 5 mg tablet Take 1 tablet (5 mg total) by mouth 1 (one) time each day. 1 tablet 1 cholecalciferol (VITAMIN D-3) 50 mcg (2,000 unit) capsule Take 1 capsule (2,000 Units total) by mouth 1 (one) time each day. 1 capsule 0 dicyclomine (BENTYL) 10 mg capsule Take 1 Capsule by mouth 4 times daily (before meals and nightly)for 180 days. losartan (COZAAR) 50 mg tablet Take 1 tablet (50 mg total) by mouth 1 (one) time each day. 1 tablet0 valACYclovir (VALTREX) 500 mg tablet Take 1 tablet (500 mg total) by mouth 2 (two) times a day. 1 tablet 0 WHEAT DEXTRIN ORAL Take 4 g by mouth daily. Zepbound 2.5 mg/0.5 mL injection ADMINISTER 2.5 MG UNDER THE SKIN EVERY 7 DAYS 2 mL 0 [DISCONTINUED] amLODIPine (NORVASC) 5 mg tablet Take 1 tablet (5 mg total) by mouth 1 (one) time each day. [DISCONTINUED] cholecalciferol (VITAMIN D-3) 50 mcg (2,000 unit) capsule Take 1 Tablet by mouth daily. [DISCONTINUED] losartan (COZAAR) 50 mg tablet Take 1 tablet (50 mg total) by mouth 1 (one) time each day. [DISCONTINUED] valACYclovir (VALTREX) 500 mg tablet ALLERGIES: Allergies Allergen Reactions Amoxicillin-Pot Clavulanate Lip swelling Carvedilol Increased BP Clonidine Fatigue, worsened blood pressure Hydrochlorothiazide Other Reaction(s): OTHER Dehydration, electrolyte Metoprolol Other Reaction(s): Rash/Dermatitis Sulfa (Sulfonamide Antibiotics) Other Reaction(s): Hives/Urticaria Sulfamethoxazole-Trimethoprim Other Reaction(s): Hives/Urticaria Tramadol Itching IMPRESSION: 1. Screening for metabolic disorder 2. Chronic migraine with aura without status migrainosus, not intractable 3. Primary hypertension 4. Herpes 5. Vitamin D deficiency 6. Abnormal CBC 7. Confusion 8. EDENILSON on CPAP PLAN: 1. Patient is here for forgetfulness, increased confusion. The patient is oriented to self, place, time, and situation. Neurological exam is normal. Referral to neurologist has been placed. Blood work has been ordered for CMP, magnesium level, and hemoglobin A1c. A UA has also been ordered. Etiology of confusion unknown, will rule out infection via blood and urine; sending to neurologist for further assessment as an urgent referral. 2. Referral to pulmonology has been putting due to patient needing a new CPAP machine. 3. Chart review completed, noted abnormal CBC in chart from 2020. CBC ordered today for follow-up. 4. Basic [place] refill ordered for patient's herpes breakouts as needed. 5. Hypertension, stable, medications refilled. 6. Vitamin D deficiency: Medication refilled. Discussed red flags that would warrant further evaluation. Plan of care reviewed with patient and patient verbalized understanding and is in agreement with plan. Today's documentation was made using voice recognition software.This note may contain grammatical errors secondary to this software. ORDERS: Orders Placed This Encounter Procedures Comprehensive metabolic panel Hemoglobin A1c Magnesium Urinalysis with reflex microscopic and culture Vitamin D 25 hydroxy Ambulatory referral to Hematology Ambulatory referral to Neurology Ambulatory referral to Pulmonology Medications Discontinued During This Encounter Medication Reason amLODIPine (NORVASC) 5 mg tablet Reorder losartan (COZAAR) 50 mg tablet Reorder valACYclovir (VALTREX) 500 mg tablet Reorder cholecalciferol (VITAMIN D-3) 50 mcg (2,000 unit) capsule Reorder AMB REFERRAL TO HEMATOLOGY AMB REFERRAL TO NEUROLOGY AMB REFERRAL TO PULMONOLOGY Brunilda Clarke NP on 04/17/2024 documented in this encounter Plan of Treatment Upcoming Encounters Date Type Department Care Team (Late st Contact Info) Description 05/18/2024 8:45 AM EDT Office Visit Bariatric Surgery - [place] [address] [facility] [address] [place] [phone] Raiza Stewart MD [address] [facility] [address] [place] [address] 05/26/2024 10:00 AM EDT Ancillary Procedure [facility] [address] [facility] [address] [place] [address] 05/29/2024 1:00 PM EDT Office Visit [facility] Hematology Oncology [address] [place] [phone] Cindy Levin, [address] [place] [address] 06/15/2024 9:00 AM EDT Office Visit Internal Medicine - [facility] [address] [place] [address] Brunilda Frederick NP [address] [place] [address] 07/13/2024 8:15 AM EDT Telemedicine [facility] [address] [facility] [address] [place] [phone] Joan Moreland MD [address] [place] [address] Scheduled Referrals Name Type Priority Associated Diagnoses Order Schedule Ambulatory referral to Hematology Outpatient Referral Routine Abnormal CBC 1 Occurrences starting 04/17/2024 until 04/17/2025 Ambulatory referral to Neurology Outpatient Referral Routine Confusion 1 Occurrences starting 04/17/2024 until 04/17/2025 Ambulatory referral to Pulmonology Outpatient Referral Routine EDENILSON on CPAP 1 Occurrences starting 04/17/2024 until 04/17/2025 documented as of this encounter Results * Vitamin D 25 hydroxy (04/17/2024 11:47 AM EST) Vit D, 25-Hydroxy 35.8 30.0 - 80.0 ng/mL LAB CHEMISTRY METHOD 04/17/2024 2:47 PM EST [facility] Blood Venous blood specimen / Unknown Venipuncture / Unknown 04/17/2024 11:47 AM EST 04/17/2024 11:47 AM EST us Brunilda Clarke SUPERVISOR FUSING ROOM LAB BLOOD ORDERABLES Final R esult [facility] [address] [place] [address], [place] [phone] * Magnesium (04/17/2024 11:47 AM EST) Magnesium 2.4 1.9 - 2.6 mg/dL LAB CHEMISTRY METHOD 04/17/2024 2:40 PM EST [facility] Blood Venous blood specimen / Unknown Venipuncture / Unknown 04/17/2024 11:47 AM EST 04/17/2024 11:47 AM EST Brunilda Clarke SUPERVISOR FUSING ROOM LAB BLOOD ORDERABLES Final R esult Performing Organization Address [facility] [address]/ZIP Co de Phone Number [facility] [address] [place] [address], * Hemoglobin A1c (04/17/2024 11:47 AM EST) Hemoglobin A1C 5.3 <6.5 % LAB CHEMISTRY METHOD 04/17/2024 9:18 PM EST [facility] Mean Bld Glu Estim. 105 mg/dL LAB CHEMISTRY METHOD 04/17/2024 9:18 PM EST [facility] Blood Venous blood specimen / Unknown Venipuncture / Unknown 04/17/2024 11:47 AM EST 04/17/2024 11:47 AM EST Brunilda Clarke SUPERVISOR FUSING ROOM LAB BLOOD ORDERABLES Final R esult Performing Organization Address City/[facility] [address]/ZIP Co de Phone Number [facility] [address] [place] [address], [place] [phone] * Comprehensive metabolic panel (04/17/2024 11:47 AM EST) Sodium 141 133 - 145 mmol/L LAB CHEMISTRY METHOD 04/17/2024 2:42 PM EST [facility] Potassium 4.6 3.5 - 5.5 mmol/L LAB CHEMISTRY METHOD 04/17/2024 2:42 PM [facility] Chloride 107 96 - 110 mmol/L LAB CHEMISTRY METHOD 04/17/2024 2:42 PM [facility] CO2 28 21 - 32 mmol/L LAB CHEMISTRY METHOD 04/17/2024 2:42 PM [facility] Anion Gap 6 3 - 11 LAB CHEMISTRY METHOD 04/17/2024 2:42 PM [facility] Glucose 80 70 - 100 mg/dL LAB CHEMISTRY METHOD 04/17/2024 2:42 PM [facility] BUN 10 5 - 25 mg/dL LAB CHEMISTRY METHOD 04/17/2024 2:42 PM [facility] Creatinine 0.84 0.50 - 1.10 mg/dL LAB CHEMISTRY METHOD 04/17/2024 2:42 PM [facility] eGFR 84 >=60 mL/min/1. 73m2 LAB CHEMISTRY METHOD 04/17/2024 2:42 PM [facility] Comment:Calculation based on the??Chronic Kidney Disease Epidemiology Collaboration (CKD-EPI) equation refit??without adjustment for race. BUN/Creatinine Ratio 11.9 LAB CHEMISTRY METHOD 04/17/2024 2:42 PM [facility] Calcium 10.4 8.5 - 10.5 mg/dL LAB CHEMISTRY METHOD 04/17/2024 2:42 PM [facility] AST (SGOT) 18 10 - 42 unit/L LAB CHEMISTRY METHOD 04/17/2024 2:42 PM [facility] ALT (SGPT) 23 10 - 60 unit/L LAB CHEMISTRY METHOD 04/17/2024 2:42 PM [facility] Alkaline Phosphatase 80 42 - 121 unit/L LAB CHEMISTRY METHOD 04/17/2024 2:42 PM [facility] Total Protein 7.6 6.0 - 8.0 g/dL LAB CHEMISTRY METHOD 04/17/2024 2:42 PM EST [facility] Albumin 4.0 3.2 - 5.0 g/dL LAB CHEMISTRY METHOD 04/17/2024 2:42 PM EST [facility] Total Bilirubin 0.3 0.0 - 1.4 mg/dL LAB CHEMISTRY METHOD 04/17/2024 2:42 PM EST [facility] Blood Venous blood specimen / Unknown Venipuncture / Unknown 04/17/2024 11:47 AM EST 04/17/2024 11:47 AM EST us Brunilda Clarke NP LAB BLOOD ORDERABLES Final R esult [facility] [address] [place] [address], documented in this encounter Visit Diagnoses Diagnosis Screening for metabolic disorder- Primary Chronic migraine with aura without status migrainosus, not intractable Primary hypertension Unspecified essential hypertension Herpes Herpes simplex without mention of complication Vitamin D deficiency Abnormal CBC Other abnormal blood chemistry Confusion Unspecified psychosis EDENILSON on CPAP documented in this encounter Discontinued Medications Medication Sig Discontinue Reason Start Date End Da te amLODIPine (NORVASC) 5 mg tablet Take 1 tablet (5 mg total) by mouth 1 (one) time each day. Reorder 11/16/2023 04/17/2024 losartan (COZAAR) 50 mg tablet Take 1 tablet (50 mg total) by mouth 1 (one) time each day. Reorder 09/13/2023 04/17/2024 valACYclovir (VALTREX) 500 mg tablet Reorder 08/26/2023 04/17/2024 cholecalciferol (VITAMIN D-3) 50 mcg (2,000 unit) capsule Take 1 Tablet by mouth daily. Reorder 06/01/2023 04/17/2024 documented as of this encounter Historical Medications * This list may reflect changes made after this encounter. multivitamin with minerals (CENTRUM) tablet Take 1 tablet by mouth 1 (one) time each day. added in this encounter Additional Health Concerns Assessment Noted Time PHQ-9 Depression Total Score: 0 04/16/19 25 2:32 PM EST documented as of this encounter Care Teams Universal Grinder Tool Relationship Specialty Start Date End Date Alice Bryant DO [address] [place] [address] PCP - General Internal Medicine 02/10/24 documented as of this encounter
--- OUTSIDE RECORDS SUMMARY | 2024-05-15 17:04 | XMS_ITS | Clinical Summary ---
Author Organization [facility] Address [address] [place] [address] Care Team Providers Care Journalism Teacher Name Role Phone Lyla Simmons MD Primary Care Provider + Allergies Active Allergy Reactions Criticality Noted Date Comments Sulfamethoxazole-Trimethoprim 2020 Hydrochlorothiazide 06/18/2020 Sulfa Antibiotics 06/18/2020 Medications Medication Sig Dispensed Refills Start Date End Date Status cloNIDine (CATAPRES) 0.2 MG tablet Take 1 tablet (0.2 mg total) by mouth 2 (two) times a day. 60 tablet 0 06/18/2020 Active Active Problems No known active problems Social History Tobacco Use Types Packs/Day Years Used Date Smoking Tobacco: Former Smokeless Tobacco: Never Sex and Gender Information Value Date Recorded Sex Assigned at Female 06/18/2020 8:01 AM EDT Gender Identity Not on file Sexual Orientation Not on file Job Start Date Occupation Industry Not on file Not on file Not on file Last Filed Vital Signs Vital Sign Reading Time Taken Comments Blood Pressure 123/72 10/30/2020 11:10 AM EDT Pulse 87 10/30/2020 11:10 AM EDT Temperature 36.6 ??C (97.9 ??F) 10/30/2020 1 1:10 AM EDT Respiratory Rate 18 10/30/2020 11:1 0 AM EDT Oxygen Saturation 96% 10/30/2020 11: 10 AM EDT Inhaled Oxygen Concentration - - Weight 128.5 kg (283 lb 4.7 oz) 10/30/2020 8:18 AM EDT Height - - Body Mass Index - - Plan of Treatment Health Maintenance Due Date Last Done Comments Hepatitis B Vaccines (1 of 3 - 3-dose series) 1972 Hepatitis C Screening 1972 Depression Screening 1984 Preventative Health Evaluation 1990 DTap / Tdap / Td (1 - Tdap) 10/22/1991 Cervical Cancer Screening (Pap Smear) 1993 Colon Cancer Screening (Colonoscopy) 2017 Breast Cancer Screening (Mammogram) 2022 Shingrix-Zoster Vaccine (1 o f 2) 2022 COVID-19 Vaccine (3 - 2023-2 5 season) 2023 08/03/2020, 07/12/2020 Influenza Vaccine (#1) 2023 0, 12/26/2012 Pneumococcal Vaccine Aged Out No long er eligible based on patient's age to complete this topic RSV Ped < 20 months Aged Out No longe r eligible based on patient's age to complete this topic Care Teams Journalism Teacher Relationship Specialty Start Date End Date Lyla Simmons MD [address] [phone] PCP - General Internal Medicine 06/18/20
--- OUTSIDE RECORDS SUMMARY | 2024-05-15 17:04 | XMS_ITS | Encounter Summary ---
Author Organization [facility] [place] [address] Care Team Providers Care Account Administrator Name Role Phone Alice Bryant DO Primary Care Provider [phone] Encounter Details Date Type Department Care Team (Late st Contact Info) Description 04/17/2024 11:20 AM [facility] Lab Draw Station [facility] [address] [place] [address] Vitamin D deficiency; Confusion; Screening for metabolic disorder Social History Tobacco Use Types Packs/Day Years [...] for your loved ones. For example, children's minister or elderly care for an older adult? [...] as of this encounter Progress Notes * Brunilda Clarke NP - 04/17/2024 11:20 AM EST My chart message sent with test results to patient. documented in this encounter Plan of Treatment Upcoming Encounters Date Type Department Care Team (Late st Contact Info) Description 05/18/2024 8:45 AM EDT Office Visit Bariatric Surgery - [place] [address] [facility] [address] [place] [address] Raiza Stewart MD [address] [facility] [address] [place] [address] 05/26/2024 10:00 AM EDT Ancillary Procedure [facility] [address] [place] [phone] 05/29/2024 1:00 PM EDT Office Visit [facility] Hematology Oncology [address] [place] [phone] Cindy Levin, DO [address] [place] [address] 06/15/2024 9:00 AM EDT Office Visit Internal Medicine - [facility] [address] [place] [address] Brunilda Frederick, ALLEN [address] [place] [address] 07/13/2024 8:15 AM EDT Telemedicine [facility] 175 [facility] [address] [place] [phone] Joan Moreland MD [address] [place] [address] documented as of this encounter Procedures Procedure Name Priority Date/Time Associated Diagnosis Comments URINALYSIS WITH REFLEX MICROSCOPIC AND CULTURE Routine 04/17/2024 11:47 AM EST Confusion VITAMIN D 25 HYDROXY Routine 04/17/2024 11:47 AM EST Vitamin D deficiency MAGNESIUM Routine 04/17/2024 11:47 AM EST Confusion HEMOGLOBIN A1C Routine 04/17/2024 11:47 AM EST Confusion COMPREHENSIVE METABOLIC PANEL Routine 04/17/2024 11:47 AM EST Screening for metabolic disorder Confusion VALDEZ URINE CULTURE TUBE Routine 04/17/2024 11:43 AM EST Confusion URINALYSIS WITH REFLEX MICROSCOPIC AND CULTURE Routine 04/17/2024 11:43 AM EST Confusion documented in this encounter Results * (ABNORMAL) Urinalysis with reflex microscopic and culture (04/17/2024 11:47 AM EST) Specific [place] Urine 1.014 1.003 - 1.030 LAB URINALYSIS - AUTOMATED METHOD 04/17/2024 3:04 PM [facility] pH, Urine 7.0 5.0 - 8.0 pH LAB URINALYSIS - AUTOMATED METHOD 04/17/2024 3:04 PM [facility] Leukocytes, Urine Negative Negative LAB URINALYSIS - AUTOMATED METHOD 04/17/2024 3:04 PM [facility] Nitrite, Urine Negative Negative LAB URINALYSIS - AUTOMATED METHOD 04/17/2024 3:04 PM [facility] Protein, Urine Negative <=Trace mg/dL LAB URINALYSIS - AUTOMATED METHOD 04/17/2024 3:04 PM [facility] Glucose, Urine Negative Negative mg/dL LAB URINALYSIS - AUTOMATED METHOD 04/17/2024 3:04 PM [facility] Ketones, Urine Negative Negative mg/dL LAB URINALYSIS - AUTOMATED METHOD 04/17/2024 3:04 PM [facility] Urobilinogen, Urine 0.2 0.2 - 1.0 mg/dL LAB URINALYSIS - AUTOMATED METHOD 04/17/2024 3:04 PM [facility] Bilirubin, Urine Negative Negative LAB URINALYSIS - AUTOMATED METHOD 04/17/2024 3:04 PM [facility] Blood, Urine Small(A) Negative LAB URINALYSIS - AUTOMATED METHOD 04/17/2024 3:04 PM [facility] RBC, Urine 6.1(H) 0 - 4 /HPF LAB URINALYSIS - AUTOMATED METHOD 04/17/2024 3:04 PM [facility] WBC, Urine 0.5 0 - 4 /HPF LAB URINALYSIS - AUTOMATED METHOD 04/17/2024 3:04 PM [facility] Squamous Epithelial, Urine 28 0 - 60 /LPF LAB URINALYSIS - AUTOMATED METHOD 04/17/2024 3:04 PM [facility] Bacteria, Urine Negative Negative /HPF LAB URINALYSIS - AUTOMATED METHOD 04/17/2024 3:04 PM [facility] Hyaline Casts, Urine 0.0 0 - 3 /LPF LAB URINALYSIS - AUTOMATED METHOD 04/17/2024 3:04 PM [facility] Urine Urine specimen obtained by clean catch procedure / Unknown Non-blood Collection / Unknown 04/17/2024 11:47 AM EST 04/17/2024 11:47 AM EST us Brunilda Clarke NP LAB URINE ORDERABLES Final R esult [facility] [address] [place] [address], [place] [phone] * Comprehensive metabolic panel (04/17/2024 11:47 AM EST) Sodium 141 133 - 145 mmol/L LAB CHEMISTRY METHOD 04/17/2024 2:42 PM [facility] Potassium 4.6 3.5 - 5.5 mmol/L LAB CHEMISTRY METHOD 04/17/2024 2:42 PM [facility] Chloride 107 96 - 110 mmol/L LAB CHEMISTRY METHOD 04/17/2024 2:42 PM [facility] CO2 28 21 - 32 mmol/L LAB CHEMISTRY METHOD 04/17/2024 2:42 PM [facility] Anion Gap 6 3 - 11 LAB CHEMISTRY METHOD 04/17/2024 2:42 PM [facility] Glucose 80 70 - 100 mg/dL LAB CHEMISTRY METHOD 04/17/2024 2:42 PM [facility] BUN 10 5 - 25 mg/dL LAB CHEMISTRY METHOD 04/17/2024 2:42 PM [facility] Creatinine 0.84 0.50 - 1.10 mg/dL LAB CHEMISTRY METHOD 04/17/2024 2:42 PM [facility] eGFR 84 >=60 mL/min/1. 73m2 LAB CHEMISTRY METHOD 04/17/2024 2:42 PM [facility] Comment:Calculation based on the??Chronic Kidney Disease Epidemiology Collaboration (CKD-EPI) equation refit??without adjustment for race. BUN/Creatinine Ratio 11.9 LAB CHEMISTRY METHOD 04/17/2024 2:42 PM [facility] Calcium 10.4 8.5 - 10.5 mg/dL LAB CHEMISTRY METHOD 04/17/2024 2:42 PM [facility] AST (SGOT) 18 10 - 42 unit/L LAB CHEMISTRY METHOD 04/17/2024 2:42 PM [facility] ALT (SGPT) 23 10 - 60 unit/L LAB CHEMISTRY METHOD 04/17/2024 2:42 PM [facility] Alkaline Phosphatase 80 42 - 121 unit/L LAB CHEMISTRY METHOD 04/17/2024 2:42 PM [facility] Total Protein 7.6 6.0 - 8.0 g/dL LAB CHEMISTRY METHOD 04/17/2024 2:42 PM [facility] Albumin 4.0 3.2 - 5.0 g/dL LAB CHEMISTRY METHOD 04/17/2024 2:42 PM [facility] Total Bilirubin 0.3 0.0 - 1.4 mg/dL LAB CHEMISTRY METHOD 04/17/2024 2:42 PM [facility] Blood Venous blood specimen / Unknown Venipuncture / Unknown 04/17/2024 11:47 AM EST 04/17/2024 11:47 AM EST us Brunilda Clarke PERSONNEL MONITOR LAB BLOOD ORDERABLES Final R esult Performing Organization Address City/[facility]/ZIP Co de Phone Number [facility] [address] [place] [address], [place] [phone] * Hemoglobin A1c (04/17/2024 11:47 AM EST) [facility] Hemoglobin A1C 5.3 <6.5 % LAB CHEMISTRY METHOD 04/17/2024 9:18 PM EST [facility] Mean Bld Glu Estim. 105 mg/dL LAB CHEMISTRY METHOD 04/17/2024 9:18 PM EST [facility] Blood Venous blood specimen / Unknown Venipuncture / Unknown 04/17/2024 11:47 AM EST 04/17/2024 11:47 AM EST us Brunilda Clarke PERSONNEL MONITOR LAB BLOOD ORDERABLES Final R esult Performing Organization Address City/[facility]/ZIP Co de Phone Number [facility] [address] [place] [address], [place] [phone] * Magnesium (04/17/2024 11:47 AM EST) [facility] Magnesium 2.4 1.9 - 2.6 mg/dL LAB CHEMISTRY METHOD 04/17/2024 2:40 PM EST [facility] Blood Venous blood specimen / Unknown Venipuncture / Unknown 04/17/2024 11:47 AM EST 04/17/2024 11:47 AM EST us Brunilda Clarke PERSONNEL MONITOR LAB BLOOD ORDERABLES Final R esult Performing Organization Address City/[facility]/ZIP Co de Phone Number [facility] [address] [place] [address], [place] [phone] * Vitamin D 25 hydroxy (04/17/2024 11:47 AM EST) [facility] Vit D, 25-Hydroxy 35.8 30.0 - 80.0 ng/mL LAB CHEMISTRY METHOD 04/17/2024 2:47 PM EST [facility] Blood Venous blood specimen / Unknown Venipuncture / Unknown 04/17/2024 11:47 AM EST 04/17/2024 11:47 AM EST Brunilda Clarke PERSONNEL MONITOR LAB BLOOD ORDERABLES Final R esult [facility] [address] [place] [address], [place] [phone] * Valdez urine culture tube (04/17/2024 11:43 AM EST) Extra Tube Hold for add-ons. 04/17/2024 5:01 PM EST [facility] Comment:Auto resulted. Urine Urine specimen obtained by clean catch procedure / Unknown Non-blood Collection / Unknown 04/17/2024 11:43 AM EST 04/17/2024 11:43 AM EST Brunilda Clarke PERSONNEL MONITOR LAB URINE ORDERABLES Final R esult [facility] [address] [place] [address], [place] [phone] documented in this encounter Visit Diagnoses Diagnosis Vitamin D deficiency Confusion Unspecified psychosis Screening for metabolic disorder documented in this encounter Additional Health Concerns Assessment Noted Time PHQ-9 Depression Total Score: 0 04/16/19 25 2:32 PM EST documented as of this encounter Care Teams Account Administrator Relationship Specialty Start Date End Date Alice Bryant DO [address] [place] [address] PCP - General Internal Medicine 02/10/24 documented as of this encounter
--- OUTSIDE RECORDS SUMMARY | 2024-05-15 17:04 | XMS_ITS | Encounter Summary ---
Author Organization [facility] Address [address] [place] [address] Care Team Providers Care Barn Boss Name Role Phone Alice Bryant DO Primary Care Provider [phone] Reason for Referral * Consultation (Routine) - Authorized Specialty Diagnoses / Procedures Referred By Lauren wallace Referred To Contact Cardiology Diagnoses Chest pain, unspecified type Palpitations Angelic Szymanski NP [address] [place] [address] Phone: tel: fax: [facility] [address] [place] [address] Phone: tel: fax: Referral ID Status Reason Start Date Expiration Date Visits Requested Visits Authorized [id number] Authorized Specialty Services Required 05/05/2024 05/05/2025 1 1 * Imaging (Routine) - Pending Review Specialty Diagnoses / Procedures Referred By Lauren wallace Referred To Contact Cardiology Diagnoses Chest pain, unspecified type Palpitations Procedures Stress echocardiogram (TTE) exercise with contrast, bubble, strain, and 3D PRN order panel [place] ECHOCARDIOGRAPHY TRANSTHORACIC 2D REST & STRESS W INTERPRETATION/REPORT [place] ECHOCARDIOGRAPHY TRANSTHORACIC 2D REST & STRESS W/M-MODE [place] DOPPLER ECHO COMPLETE [place] ECHOCARDIOGRAPHY DOPPLER COLOR FLOW MAPPING [place] CV TMST/BIKE MAX/SUBMAX CONTINUOUS ECG MON/PHARM STRESS SUPVSR ONLY [place] TEST STRESS CARDIOVASCULAR TRACING ONLY [place] CV STRESS TEST/BIKE CONT ECG MON/PHARM STRESS INTERP & REPORT ONLY Angelic Szymanski NP [address] [place] [address] Phone: tel: fax: [facility] Referral ID Status Reason Start Date Expiration Date V isits Requested Visits Authorized [id number] Pending Review 05/05/2024 05/05/2025 1 1 * Cardiac Stress Testing (Routine) - Authorized Specialty Diagnoses / Procedures Referred By Contac t Referred To Contact Cardiology Diagnoses Chest pain, unspecified type Palpitations Procedures Cardiac holter monitor (<= 48 hours) [place] ECG EXTERNAL UP TO 48 HOURS RECORDING [place] ECG EXTERNAL < 48 HOURS CONTINUOUS RECORDING/STORAGE R&I BY A PHYS/QHP [place] EXTERNAL ECG UP TO 48 HRS INCL RECORDING SCANNING ANLYS W REPORT Angelic Szymanski NP [address] [place] [address] Phone: tel: fax: [facility] Referral ID Status Reason Start Date Expiration Date V isits Requested Visits Authorized [id number] Authorized 05/05/2024 05/05/2025 1 1 Reason for Visit * Reason Comments ED Follow-up Chest pain/palpitati ons/lightheaded Encounter Details Date Type Department Care Team (Late st Contact Info) Description 05/05/2024 3:00 PM EST Office Visit Internal Medicine - [address] [phone] Angelic Szymanski NP [address] [place] [phone] Chest pain, unspecified type (Primary Dx); Palpitations Social History Tobacco Use Types Packs/Day Years [...] your loved ones. For example, child care provider or elderly care for an older [...] Pulse 92 05/05/2024 3:00 PM EST Temperature - - Respiratory Rate - - Oxygen Saturation - - Inhaled Oxygen Concentration - - Weight 134 kg (296 lb 6.4 oz) 05/05/2024 3:00 PM EST Height 172.7 cm (5' 8 ) 05/05/2024 3:00 PM EST Body Mass Index 45.07 05/05/2024 3:00 PM EST documented in this encounter Patient Instructions * Attachments The following attachments cannot be sent through Care Everywhere. * Premature Ventricular Contraction (PVC) ([place]) documented in this encounter Progress Notes * Angelic Szymanski NP - 05/05/2024 3:00 PM EST CHIEF COMPLAINT: ED Follow-up (Chest pain/palpitations/lightheaded ) IDENTIFIER: Sade Farmer is a 53 y.o. old female here for ER follow-up. History of Present Illness The patient is being seen for an ER follow-up today. She was seen at [facility] ER on 05/03/2024 complaining of palpitations, left-sided and sternal chest pain, headache, and neck pain. The pain had been lasting for 2 days. She did not have any shortness of breath. She did not have back pain, focal numbness, weakness, visual complaints, or d ifficulty speaking. She did not have any abdominal pain, vomiting, or diarrhea. She did have some nausea and lightheadedness. She had no known history of CAD or thromboembolic disease, history of TIAor CVA. She is not on blood thinners. She does have a history of migraine headaches. Labs includingCBC, CMP, troponin, TSH were within normal limits. EKG showed sinus rhythm without ischemic changes. CTA head and neck without acute findings and chest x-ray normal. Patient deemed safe for dischargehome and advised follow-up with PCP. Since her ER visit she continues to have a dull ache in the substernal region that comes and goes but is not associated with activity. She also has intermittent palpitations described as a skipped beat. These are not painful and there is no associated difficulty breathing. She reports remotely having had a Holter monitor done but she does not recall what the results showed. Records show a historyof first-degree AV block but no documentation of cardiac arrhythmia. ROS: GENERAL: No malaise, significant weight loss or fever HEENT: No changes in hearing or vision, nose bleeds or other nasal problems RESPIRATORY: No cough, wheezing or shortness of breath CARDIOVASCULAR: see HPI GI: No abdominal pain, diarrhea, constipation, blood in stool : No dysuria, frequency, incontinence, hematuria MUSCULOSKELETAL: No joint pain or swelling, back pain, or muscle pain. SKIN: No lesions, rash or itching NEURO: No persistent headache, syncope, seizures, weakness or numbness All other systems reviewed and negative. PAST MEDICAL HISTORY: Patient Active Problem List Diagnosis Date Noted Microhematuria 01/13/2024 Class 3 severe obesity due to excess calories with serious comorbidity and body mass index (BMI) of45.0 to 49.9 in adult ([facility]) 01/13/2024 1st degree AV block 04/01/2020 Palpitations 04/01/2020 Impingement syndrome of left shoulder 03/17/2020 Ovarian cyst 11/09/2017 Nonulcer dyspepsia 08/12/2017 Hydronephrosis of left kidney 07/16/2017 IBS (irritable bowel syndrome) 07/16/2017 Migraine 07/16/2017 Multiple fibroadenomata of both breasts 07/16/2017 Vitamin D deficiency 08/20/2016 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 Bipolar 2 disorder ([facility]) 08/17/2016 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 Hypertension 08/17/2016 Knee pain 08/17/2016 EDENILSON on CPAP 08/17/2016 SOCIAL HISTORY: Social History Tobacco Use Smoking status: Never Smokeless tobacco: Never Substance Use Topics Alcohol use: Yes FAMILY HISTORY: Family Status Relation Name Status Mother MGM (Not Specified) No partnership data on file Family History Problem Relation Name Age of Onset Asthma Mother end stage COPD,HTN- age 57 Hypertension Mother Hypertension Maternal Grandmother Arthritis ACTIVE MEDICATIONS: Outpatient Medications Marked as Taking for the 05/05/24 encounter (Office Visit) with Angelic Szymanski NP Medication Sig Dispense Refill albuterol HFA (PROAIR HFA ; PROVENTIL HFA ; VENTOLIN HFA) 90 mcg/actuation inhaler Inhale 1 puff bymouth if needed. amLODIPine (NORVASC) 5 mg tablet Take 1 [...] with meals for 15 days. 30 tablet 0 tirzepatide, weight loss, (Zepbound) 5 mg/0.5 mL injection Inject 0.5 mL (5 mg total) under the skin every 7 (seven) days. 2 mL 0 valACYclovir (VALTREX) 500 mg tablet Take 1 tablet (500 mg total) by mouth 2 (two) times a day. 180tablet 1 ALLERGIES: Amoxicillin-pot clavulanate, Carvedilol, Clonidine, Hydrochlorothiazide, Metoprolol, Sulfa (sulfonamide antibiotics), Sulfamethoxazole-trimethoprim, and Tramadol PHYSICAL EXAM: Blood pressure (!) 148/98, pulse 92, height 1.727 m (68 ), weight 134 kg (296 lb 6.4 oz). Body massindex is 45.07 kg/m??. Plan is deferred until next visit APPEARANCE: Alert and in no acute distress EYES: PERRLA, conjunctiva and sclera normal. HEART: Rhythm irregular with skipped beat with normal S1 and S2, no murmurs LUNG: Clear to auscultation bilaterally. Able to talk in full complete sentences ABDOMEN: Bowel sounds normoactive, soft, non-tender, without organomegaly or palpable masses. EXTREMITIES: Extremities warm and well perfused without clubbing, cyanosis, or edema. NEURO: Alert and oriented x 3. CN II-XII intact. Gait steady. IMPRESSION: 1. Chest pain, unspecified type 2. Palpitations Assessment & Plan Substernal chest pain: ER workup was reassuring but will obtain stress echo for further evaluation.Advised ER for sustained pain or difficulty breathing. Palpitations: EKG done in the office today did demonstrate PVCs. We discussed lifestyle and dietarymodifications to reduce these, will obtain a Holter monitor. Reviewed labs in the ER including magnesium, BMP and TSH which were unremarkable. Cardiology consultation ordered. No orders of the defined types were placed in this encounter. ADDITIONAL ORDERS: None Angelic Szymanski NP on 05/05/2024 at 3:08 PM EST Contains text generated by [employer]iate[employer] I have obtained verbal consent from Sade Farmer prior to the recording. I have advised Sade Farmer that she may refuse the recording and require the recording to be turned off at any time during this encounter. * Lyla Graham MA - 05/05/2024 3:00 PM EST Electrocardiogram performed and reviewed by Angelic Szymanski NP documented in this encounter Plan of Treatment Upcoming Encounters Date Type Department Care Team (Late st Contact Info) Description 05/18/2024 8:45 AM EDT Office Visit Bariatric Surgery - [place] [address] [phone] Raiza Stewart MD [address] [address] 05/26/2024 10:00 AM EDT Ancillary Procedure [facility] - [facility] [address] [facility] [address] [place] [phone] 05/29/2024 1:00 PM EDT Office Visit [facility] Hematology Oncology [address] [place] [phone] Cindy Levin DO [address] [place] [address] 06/15/2024 9:00 AM EDT Office Visit Internal Medicine - [facility] [address] [place] [address] Brunilda Frederick NP [address] [place] [address] 07/13/2024 8:15 AM EDT Telemedicine [facility] [address] [place] [address] Joan Moreland MD [address] [place] [address] Scheduled Orders Name Type Priority Associated Diagnoses Order Schedule Cardiac holter monitor (<= 48 hours) Cardiac Services Routine Chest pain, unspecified type Palpitations 1 Occurrences starting 05/05/2024 until 05/05/2025 Stress echocardiogram (TTE) exercise with contrast, bubble, strain, and 3D PRN order panel Stress Echocardiography Routine Chest pain, unspecified type Palpitations 1 Occurrences starting 05/05/2024 until 05/05/2025 Scheduled Referrals Name Type Priority Associated Diagnoses Order Schedule Ambulatory referral to Cardiology Outpatient Referral Routine Chest pain, unspecified type Palpitations 1 Occurrences starting 05/05/2024 until 05/05/2025 documented as of this encounter Procedures Procedure Name Priority Date/Time Associated Diagnosis Comments ECG 12-LEAD Routine 05/05/2024 4:10 PM EST Chest pain, unspecified type Palpitations documented in this encounter Results * ECG 12 lead (05/05/2024 4:10 PM EST) Narrative Angelic Szymanski NP - 05/05/2024 4:10 PM EST Sinus tachycardia, ventricular premature complex, prolonged NY interval, RSR Angelic Szymanski NP ECG ORDERABLES Final Result documented in this encounter Visit Diagnoses Diagnosis Chest pain, unspecified type- Primary Palpitations documented in this encounter Discontinued Medications Medication Sig Discontinue Reason Start Date End Da te methocarbamoL (ROBAXIN) 750 mg tablet Take 1 tablet (750 mg total) by mouth 4 (four) times a day for 10 days. Therapy completed 05/03/2024 05/05/2024 WHEAT DEXTRIN ORAL Take 4 g by mouth daily. Therapy completed 12/09/2023 05/05/2024 documented as of this encounter Historical Medications * This list may reflect changes made after this encounter. cetirizine (ZyrTEC) 10 mg tablet Take 1 tablet (10 mg total) by mouth 1 (one) time each day. albuterol HFA (PROAIR HFA ; PROVENTIL HFA ; VENTOLIN HFA) 90 mcg/actuation inhaler Inhale 1 puff by mouth if needed. 02/25/2024 added in this encounter Additional Health Concerns Assessment Noted Time PHQ-9 Depression Total Score: 0 04/16/19 25 2:32 PM EST documented as of this encounter Care Teams Barn Boss Relationship Specialty Start Date End Date Alice Bryant DO [address] [place] [phone] PCP - General Internal Medicine 02/10/24 documented as of this encounter
== END 2024-05-15 14:55 | disposition home or self-care (01) ==
LOC: HO.HPS 14:32
PROVIDERS: PCP Internal Medicine; Visit Provider Nurse Practitioner Family
DX: G47.33 Obstructive sleep apnea (adult) (pediatric) (principal); R40.0 Somnolence
CPT/HCPCS: 99203

== ENCOUNTER → 2024-05-15 14:31 | Outpatient (BNVA) | payer OTHER, SELFPAY | PROVIDERS: PCP Internal Medicine; Visit Provider Nurse Practitioner Family | DX: G47.33 Obstructive sleep apnea (adult) (pediatric) (principal); G43.909 Migraine, unspecified, not intractable, without status migrainosus; R40.0 Somnolence; Z99.89 Dependence on other enabling machines and devices | CPT/HCPCS: 99202 ==

== ENCOUNTER → 2024-08-27 20:30 | Outpatient (BNV) | payer OTHER, SELFPAY | PROVIDERS: Visit Provider Internal Medicine | DX: G47.33 Obstructive sleep apnea (adult) (pediatric) (principal) | CPT/HCPCS: 95810 ==

== ENCOUNTER → 2024-08-27 20:30 | Outpatient (REF) | payer OTHER, SELFPAY | LOC: HO.SL 20:30 | PROVIDERS: Visit Provider Nurse Practitioner Family | DX: G47.33 Obstructive sleep apnea (adult) (pediatric) (principal); R40.0 Somnolence; R68.89 Other general symptoms and signs | CPT/HCPCS: 95810; 95811 ==